=== PATIENT | male | born 1950 | race Caucasian/White ===

== ENCOUNTER → 2016-10-23 | Outpatient (CLI) | payer OTHER ==
--- NOTE | 2016-10-23 15:20 | DIAGNOSTIC IMAGING REPORT ---
CT LUNG SCREENING, LOW DOSE WITH COMPUTER-AIDED DETECTION (CAD) CLINICAL HISTORY: LOW DOSE LUNG SCREENING COMPARISON STUDY: Lung cancer screening CTs dated 04/18/2016 and 01/09/2016. CT DOSE: 83.96 mGycm TECHNIQUE: Low-dose helical CT was acquired without intravenous contrast from lung apices to bases and reconstructed at 2.5 mm every 2 mm. CAD was utilized for this study. FINDINGS: Thyroid: Imaged portions of the thyroid gland are normal in appearance. Thoracic aorta: There is atherosclerotic calcification of the thoracic aorta, which is normal in caliber and demonstrates standard 3-vessel arch anatomy. Heart: The heart is normal in size and configuration, without pericardial effusion. The coronary arteries are densely calcified. There is lipomatous hypertrophy of the interatrial septum. There is mild dilatation of the main pulmonary arteries suggesting pulmonary artery hypertension. Lungs and pleural spaces: Moderate to advanced emphysema is identified. No airspace consolidation or pleural effusion is seen. There are numerous small calcified granulomas. The trachea and central airways are clear. There is a 10 mm nodule in the right middle lobe seen on axial image #179. This is unchanged dating back to 01/09/2016. Additional subcentimeter noncalcified pulmonary nodules are identified. The largest are seen the left upper lobe on image #78 measuring 6 mm, the right middle lobe on image #195 measuring 6 mm, and the left lower lobe on image #201 measuring 5 mm. These are also unchanged. No new pulmonary lesion is suspected. Mediastinum: There is no mediastinal lymphadenopathy. [place]: Not well assessed without IV contrast. Axilla: Clear. Upper abdomen: There is a small hiatal hernia. Partially visualized upper abdominal viscera is otherwise grossly unremarkable. Skeletal structures: The skeletal structures are osteopenic. There are no lytic or blastic osseous lesions. Degenerative changes noted in the thoracic spine and shoulders. IMPRESSION: 1. Emphysema. There is no airspace consolidation or pleural effusion. 2. There are numerous pulmonary nodules measuring up to 10 mm as well as numerous calcified granulomas. These have not significantly changed dating back to 01/09/2016. Continued follow-up/screening is recommended. See below. 3. No new pulmonary lesions are identified. Nodule 1 Category: 2 Nodule 1 Status: Shrinking Nodule 1 Description: Solid Nodule 1 Lesion ID: 7 Nodule 1 Slice Number: [id number] Nodule 1 Volume (mm3): 186 Nodule 1 [place] mm: 11.0 Nodule 1 [place] mm: 7.8 Nodule 2 Category: 2 Nodule 2 Status: Stable Nodule 2 Description: Solid Nodule 2 Lesion ID: 3 Nodule 2 Slice Number: [id number] Nodule 2 Volume (mm3): 61 Nodule 2 Major [place] mm: 5.5 Nodule 2 Minor [place] mm: 4.7 Nodule 3 Category: 2 Nodule 3 Status: Stable Nodule 3 Description: Solid Nodule 3 Lesion ID: 2 Nodule 3 Slice Number: 152 Nodule 3 Volume (mm3): 48 Nodule 3 Major [place] mm: 7.2 Nodule 3 Minor [place] mm: 4.4 CAD FINDINGS: Overall Lung RADS Category: 2 Lung RADS Management Recommendation: Lung-RADS 2: Continue annual screening in 12 months. Lung RADS Follow Up Date: 2017-10-23 Lung RADS Nodule ID: [id number] Electronically signed by: Saturnino May M.D. 10/23/2016 3:18 PM Dictated Date/Time: 10/23/2016 11:55 AM
== END | disposition home or self-care (01) ==
LOC: C.CTS 11:24
PROVIDERS: ATTEND Nurse Practitioner Family
DX: Z87.891 Personal history of nicotine dependence (principal); J43.9 Emphysema, unspecified; R91.8 Other nonspecific abnormal finding of lung field

== ENCOUNTER → 2017-05-19 | Outpatient (CLI) | payer OTHER ==
--- NOTE | 2017-05-19 12:32 | DIAGNOSTIC IMAGING REPORT ---
RIGHT KNEE 2 VIEWS HISTORY: M25.561 COMPARISON: None. FINDINGS: There is no fracture or dislocation. Small suprapatellar knee effusion. Mild vascular calcifications. Small calcific density adjacent to the medial femoral condyle. This is likely due to an old MCL injury. Minor arthritic change at the patellofemoral and medial compartments of the knee. No radiopaque foreign bodies. IMPRESSION: 1. No acute fracture or dislocation within the right knee. 2. Small joint effusion. 3. Suspect an old MCL injury. Electronically signed by: Hair Loza M.D. 05/19/2017 12:31 PM Dictated Date/Time: 05/19/2017 12:29 PM
== END | disposition home or self-care (01) ==
LOC: C.RAD 11:36
PROVIDERS: ATTEND Nurse Practitioner Family
DX: M25.561 Pain in right knee (principal)

== ENCOUNTER → 2017-11-12 | Outpatient (CLI) | payer OTHER ==
--- NOTE | 2017-11-12 11:51 | DIAGNOSTIC IMAGING REPORT ---
CT LUNG SCREENING CHEST, LOW DOSE WITH COMPUTER-AIDED DETECTION (CAD) CLINICAL HISTORY: Tobacco use. Encounter for screening for lung cancer. COMPARISON STUDY: Low dose lung cancer screening CT October 23, 2016. CT DOSE: 91.27 mGy.cm TECHNIQUE: Low-dose helical CT was acquired without intravenous contrast from lung apices to bases and reconstructed at 2.5 mm every 2 mm. CAD was utilized for this study. A dose lowering technique was utilized adhering to the principles of ALARA. FINDINGS: No enlarged axillary, mediastinal or hilar lymph nodes are present. The heart is mildly enlarged. There is extensive coronary artery calcification. No pericardial effusion is present. No pneumothorax or pleural effusion is noted. Moderate upper lobe predominant emphysema is noted. There is no consolidation to suggest pneumonia. No pneumothorax or pleural effusion is noted. Numerous pulmonary nodules are unchanged since initial CT of January 09, 2016 and include a 1 cm perifissural right middle lobe nodule shown on image [id number]. A 7 mm right middle lobe nodule shown image 169 is unchanged. No new nodules are present. There are several calcified granulomas. Bony thorax is unremarkable. A left adrenal low-attenuation lesion is unchanged and represents an adenoma. IMPRESSION: 1. No change in multiple pulmonary nodules since CT of January 09, 2016. These nodules are likely benign and can be assessed on routine annual screening low dose CT in 12 months. This study is considered 2. Moderate emphysema. 3. Mild cardiomegaly and extensive coronary artery calcification. CAD FINDINGS: Overall Lung RADS Category: 2 Lung RADS Management Recommendation: Lung RADS 2: Continue annual screening in 12 months. Lung RADS Follow Up Date: November 12, 2018. Electronically signed by: Shaun Parnell M.D. 11/12/2017 11:50 AM Dictated Date/Time: 11/12/2017 11:27 AM
== END | disposition home or self-care (01) ==
LOC: C.CTS 10:00
PROVIDERS: ATTEND Nurse Practitioner Family
DX: Z72.0 Tobacco use (principal); Z12.2 Encounter for screening for malignant neoplasm of respiratory organs; R91.1 Solitary pulmonary nodule; J43.9 Emphysema, unspecified; I25.10 Atherosclerotic heart disease of native coronary artery without angina pectoris

== ENCOUNTER 2019-08-13 21:10 | Inpatient (IN) ==
[2019-08-13] MEDS ORDERED: ALBUT/IPRATROP 3MG/0.5MG NEB 3 ML VIAL NEB STA (21:24)
[2019-08-13] MEDS ORDERED: CEFEPIME 2,000 MG/20 ML VIAL IV STA (21:24)
[2019-08-13] MEDS ORDERED: SODIUM CHLORIDE 0.9% 1000ML 1,000 ML IV ONE (21:24)
[2019-08-13] MEDS ORDERED: ACETAMINOPHEN 1,000 MG/100 ML VIAL IV STA (21:35)
--- NOTE | 2019-08-13 21:35 | Emergency Department Note ---
Impression & Plan Sepsis, SOB (shortness of breath), Tachycardia, Fever, Pneumonia ED Provider Note NAME: EDER ARRIAGA AGE: 69 SEX: M : 1950 ARRIVES VIA: Ambulance INFORMANT: [Patient][nurses, ems] ED PROVIDER(S): [Saturnino Boothe MD] CHIEF COMPLAINT: Fever, confusion HISTORY OF PRESENT ILLNESS: The patient is a 69-year-old male who was brought by ambulance from his home. He lives with his son. The patient apparently was weak and tired today and seemed a little bit confused. He had a subtle cough and a low-grade fever. The patient denies any pain. He does admit to being short of breath but states he feels better since being placed on oxygen. He has no diarrhea, he has not been vomiting. He denies any sore throat or stuffy nose. The patient's weakness has been constant, and has been persistent all day. Nothing makes it better or worse. His cough is minimal really. The patient has not had any coronavirus exposures, he has been isolating at home with his son. No one else has been sick in the home. Of note, the patient is slightly confused and thus, no further history obtainable. REVIEW OF SYSTEMS: Unobtainable/unreliable given the confusion and mental status change. PMHx/PSHx: See Below SOCIAL HISTORY: See Below. PHYSICAL EXAM: GENERAL: Patient is in mild distress. HEENT: No acute trauma, normocephalic atraumatic, mucous membranes quite dry, no nasal congestion, no scleral icterus. NECK: No stridor, no adenopathy, no meningismus, trachea is midline. LUNGS: Diminished breath sounds with crackles at the left base. No wheezing, breath sounds are equal, no real respiratory distress. HEART: Without murmurs gallops or rubs, mildly tachycardic, regular rhythm. ABDOMEN: Soft, nontender, bowel sounds positive, no hernias, no peritonitis. EXTREMITIES: No cyanosis or edema, full range of motion of all the joints without pain or difficulty, no signs for acute trauma. NEUROLOGIC: Awake, moves all extremities, can answer very simple questions, does seem slightly confused. SKIN: No rash, no jaundice, no diaphoresis. DIFFERENTIAL DIAGNOSIS: Sepsis, UTI, pneumonia, metabolic, electrolyte abnormalities, cardiac sources, intracerebral event, toxicologic, neurologic, as well as other pathologies. EMERGENCY DEPARTMENT COURSE/PROCEDURES: ECG: Indication was tachycardia. EKG shows a sinus tachycardia with a rate of 129. The QTc is 421. There is some baseline artifact. No ST elevation, no PVCs. Continuous Cardiac Monitoring: An order was placed for continuous cardiac monitoring. The monitor shows a rate of 120 with a sinus tachycardia. Critical Care Note: I have personally spent greater than 49 minutes of critical care time in the direct management of this patient. This includes bedside care, interpretation of diagnostic studies, and testing, discussion with consultants, patient, and family members, and other required patient management activities. This 49 minutes is in excess of all separately billable procedures. MEDICAL DECISION MAKING: There is a mild leukocytosis, this would be consistent with infection. No anemia. There is a normal platelet count. No coagulopathy. No significant electrolyte abnormality or kidney failure. No concerning liver enzyme elevati on. Urinalysis does not show evidence for infection. Influenza testing was negative. Chest film shows congestion at the bases, especially on the right. No pneumothorax, no obvious pneumonia by chest film. Lactic acid level is elevated consistent with sepsis and/or dehydration. On exam, there was no obvious cellulitis. Brain CT shows no acute bleed or mass-effect. Chest CT shows a right lower lung infiltrate. The patient was febrile, he was tachycardic and slightly confused. He did appear to have some diminished breath sounds with some crackles at his lung bases. Most of the lung crackles were heard on the left. The patient was aggressively managed as he did meet criteria for sepsis. He received 1.5 L of IV saline. He was given IV cefepime as empiric antibiotic coverage. He was given IV Tylenol and a DuoNeb. He was maintained on nasal cannula oxygen. Patient does appear to be slowly improving. The patient is in need of hospitalization. He is septic from pneumonia. He has been aggressively managed. I did speak to the patient, I talked to the wrapper caser. The on-call hospitalist was consulted. Past Med/Surg History Medical History Diabetes mellitus Social History Feels Safe at Home: Yes Smoking Status: Current every day smoker Cigarettes Per Day: 40 ; Second Hand Exposure: No ; Home Meds Home Medications Medication Instructions Recorded Confirmed lisinopril 5 mg PO DAILY 08/13/19 08/13/19 omeprazole 20 mg PO DAILY 08/13/19 08/13/19 Results & Data (ED) Vital Signs Vital Signs - 24 hr 08/13/19 21:22 08/13/19 21:28 08/13/19 21:51 Temperature 38.5 C H Temperature Source Oral Pulse Rate 123 H Pulse Rate [Bilateral Apical] 128 H Respiratory Rate 28 H 26 H Respiratory Effort / Characteristics Non-Labored Respiratory Depth Normal Blood Pressure 143/75 H Blood Pressure [Right Arm] Blood Pressure Mean 97 Blood Pressure Mean [Right Arm] Blood Pressure Position [Right Arm] Pulse Oximetry 91 93 94 Oxygen Delivery Method Room Air Nasal Cannula Nasal Cannula Oxygen Flow Rate 3 3 Sepsis Recent Fever Within 48 Hours Yes Sepsis New/Unexplained Change in Mental Status Yes Sepsis Action Taken by Nursing No Action Required 08/13/19 21:54 08/13/19 22:27 08/13/19 23:00 Temperature 37.6 C H Temperature Source Oral Pulse Rate Pulse Rate [Bilateral Apical] 120 H 120 H 120 H Respiratory Rate 20 22 22 Respiratory Effort / Characteristics Non-Labored Spontaneous Respiratory Depth Normal Blood Pressure Blood Pressure [Right Arm] 114/78 139/90 Blood Pressure Mean Blood Pressure Mean [Right Arm] 90 106 Blood Pressure Position [Right Arm] Semi-fowlers Pulse Oximetry 96 93 92 Oxygen Delivery Method Nasal Cannula Nasal Cannula Nasal Cannula Oxygen Flow Rate 3 3 3 Sepsis Recent Fever Within 48 Hours Sepsis New/Unexplained Change in Mental Status Sepsis Action Taken by [facility] Medications Current Medication List: was personally reviewed by me Laboratory Data Attestation: I reviewed the patient's lab results. Result diagrams: 08/13/19 21:30 08/13/19 21:30 Lab Results 08/13/19 08/13/19 08/13/19 Range/Units 21:30 21:30 21:30 WBC 11.49 H (4.8-10.8) K/uL RBC 4.79 (4.7-6.1) M/uL Hgb 15.9 (14.0-18.0) g/dL Hct 46.8 (42-52) % MCV 97.7 (80-100) fL MCH 33.2 (25-34) pg MCHC 34.0 (32-36) g/dL RDW Std Deviation 52.4 H (36.4-46.3) fL RDW Coeff of Bozena 14.6 H (11.5-14.5) % Plt Count 200 (130-400) K/uL MPV 10.2 (7.4-10.4) fL Immature Gran % (Auto) 0.4 % Neut % (Auto) 81.6 % Lymph % (Auto) 10.4 % [place] % (Auto) 7.4 % Eos % (Auto) 0.0 % Baso % (Auto) 0.2 % Immature Gran # (Auto) 0.05 H (0.00-0.02) K/uL Neut # (Auto) 9.38 H (1.4-6.5) K/uL Lymph # (Auto) 1.19 L (1.2-3.4) K/uL [place] # (Auto) 0.85 H (0.11-0.59) K/uL Eos # (Auto) 0.00 (0-0.5) K/uL Baso # (Auto) 0.02 (0-0.2) K/uL PT 11.7 (9.0-12.0) Seconds INR 1.1 (0.9-1.1) APTT 27.2 (21.0-31.0) Seconds PTT Ratio 1.0 Sodium 133 L (136-145) mmol/L Potassium 4.0 (3.5-5.1) mmol/L Chloride 100 (98-107) mmol/L Carbon Dioxide 24 (21-32) mmol/L Anion Gap 9.0 (3-11) BUN 29 H (7-18) mg/dl Creatinine 1.34 (0.6-1.4) mg/dl Est Cr Clr Drug Dosing 59.9 ml/min Est GFR ( Amer) 61.8 Est GFR (Non-Af Amer) 53.3 BUN/Creatinine Ratio 21.9 H (10-20) Glucose 267 H (70-99) mg/dl Lactate (0.4-2.0) mmol/L Calcium 9.2 (8.5-10.1) mg/dl Magnesium 1.9 (1.8-2.4) mg/dl Total Bilirubin 1.0 (0.2-1) mg/dl AST 20 (15-37) U/L ALT 19 (12-78) U/L Alkaline Phosphatase 56 (45-117) U/L Troponin I 0.019 (0-0.045) ng/ml Total Protein 8.6 H (6.4-8.2) gm/dl Albumin 3.5 (3.4-5.0) gm/dl Globulin 5.1 H (2.5-4.0) gm/dl Albumin/Globulin Ratio 0.7 L (0.9-2) Procalcitonin Urine Color Urine Appearance (Clear) Urine pH (4.5-7.5) Ur Specific [place] (1.000-1.030) Urine Protein (Negative) Urine Glucose (UA) (Negative) Urine Ketones (Negative) Urine Blood (Negative) Urine Nitrite (Negative) Urine Bilirubin (Negative) Urine Urobilinogen (Negative) Ur Leukocyte Esterase (Negative) Urine WBC (Auto) (0-5) /hpf Urine RBC (Auto) (0-4) /hpf U Hyaline Cast (Auto) (0-5) /lpf U Epithel Cells (Auto) (0-5) /lpf Urine Bacteria (Auto) (Negative) Influenza Type A (PCR) (Neg) Influenza Type B (PCR) (Neg) 08/13/19 08/13/19 08/13/19 Range/Units 21:30 21:38 22:14 WBC (4.8-10.8) K/uL RBC (4.7-6.1) M/uL Hgb (14.0-18.0) g/dL Hct (42-52) % MCV (80-100) fL MCH (25-34) pg MCHC (32-36) g/dL RDW Std Deviation (36.4-46.3) fL RDW Coeff of Bozena (11.5-14.5) % Plt Count (130-400) K/uL MPV (7.4-10.4) fL Immature Gran % (Auto) % Neut % (Auto) % Lymph % (Auto) % [place] % (Auto) % Eos % (Auto) % Baso % (Auto) % Immature Gran # (Auto) (0.00-0.02) K/uL Neut # (Auto) (1.4-6.5) K/uL Lymph # (Auto) (1.2-3.4) K/uL [place] # (Auto) (0.11-0.59) K/uL Eos # (Auto) (0-0.5) K/uL Baso # (Auto) (0-0.2) K/uL PT (9.0-12.0) Seconds INR (0.9-1.1) APTT (21.0-31.0) Seconds PTT Ratio Sodium (136-145) mmol/L Potassium (3.5-5.1) mmol/L Chloride (98-107) mmol/L Carbon Dioxide (21-32) mmol/L Anion Gap (3-11) BUN (7-18) mg/dl Creatinine (0.6-1.4) mg/dl Est Cr Clr Drug Dosing ml/min Est GFR ( Amer) Est GFR (Non-Af Amer) BUN/Creatinine Ratio (10-20) Glucose (70-99) mg/dl Lactate 2.9 H* (0.4-2.0) mmol/L Calcium (8.5-10.1) mg/dl Magnesium (1.8-2.4) mg/dl Total Bilirubin (0.2-1) mg/dl AST (15-37) U/L ALT (12-78) U/L Alkaline Phosphatase (45-117) U/L Troponin I (0-0.045) ng/ml Total Protein (6.4-8.2) gm/dl Albumin (3.4-5.0) gm/dl Globulin (2.5-4.0) gm/dl Albumin/Globulin Ratio (0.9-2) Procalcitonin Cancelled Urine Color Urine Appearance (Clear) Urine pH (4.5-7.5) Ur Specific [place] (1.000-1.030) Urine Protein (Negative) Urine Glucose (UA) (Negative) Urine Ketones (Negative) Urine Blood (Negative) Urine Nitrite (Negative) Urine Bilirubin (Negative) Urine Urobilinogen (Negative) Ur Leukocyte Esterase (Negative) Urine WBC (Auto) (0-5) /hpf Urine RBC (Auto) (0-4) /hpf U Hyaline Cast (Auto) (0-5) /lpf U Epithel Cells (Auto) (0-5) /lpf Urine Bacteria (Auto) (Negative) Influenza Type A (PCR) Neg for Influ A (Neg) Influenza Type B (PCR) Neg for Influ B (Neg) 08/13/19 Range/Units Unknown WBC (4.8-10.8) K/uL RBC (4.7-6.1) M/uL Hgb (14.0-18.0) g/dL Hct (42-52) % MCV (80-100) fL MCH (25-34) pg MCHC (32-36) g/dL RDW Std Deviation (36.4-46.3) fL RDW Coeff of Bozena (11.5-14.5) % Plt Count (130-400) K/uL MPV (7.4-10.4) fL Immature Gran % (Auto) % Neut % (Auto) % Lymph % (Auto) % [place] % (Auto) % Eos % (Auto) % Baso % (Auto) % Immature Gran # (Auto) (0.00-0.02) K/uL Neut # (Auto) (1.4-6.5) K/uL Lymph # (Auto) (1.2-3.4) K/uL [place] # (Auto) (0.11-0.59) K/uL Eos # (Auto) (0-0.5) K/uL Baso # (Auto) (0-0.2) K/uL PT (9.0-12.0) Seconds INR (0.9-1.1) APTT (21.0-31.0) Seconds PTT Ratio Sodium (136-145) mmol/L Potassium (3.5-5.1) mmol/L Chloride (98-107) mmol/L Carbon Dioxide (21-32) mmol/L Anion Gap (3-11) BUN (7-18) mg/dl Creatinine (0.6-1.4) mg/dl Est Cr Clr Drug Dosing ml/min Est GFR ( Amer) Est GFR (Non-Af Amer) BUN/Creatinine Ratio (10-20) Glucose (70-99) mg/dl Lactate (0.4-2.0) mmol/L Calcium (8.5-10.1) mg/dl Magnesium (1.8-2.4) mg/dl Total Bilirubin (0.2-1) mg/dl AST (15-37) U/L ALT (12-78) U/L Alkaline Phosphatase (45-117) U/L Troponin I (0-0.045) ng/ml Total Protein (6.4-8.2) gm/dl Albumin (3.4-5.0) gm/dl Globulin (2.5-4.0) gm/dl Albumin/Globulin Ratio (0.9-2) Procalcitonin Urine Color Dark Yellow Urine Appearance Clear (Clear) Urine pH 5.0 (4.5-7.5) Ur Specific [place] 1.026 (1.000-1.030) Urine Protein 2+ H (Negative) Urine Glucose (UA) 2+ H (Negative) Urine Ketones Trace H (Negative) Urine Blood 3+ H (Negative) Urine Nitrite Negative (Negative) Urine Bilirubin Negative (Negative) Urine Urobilinogen Negative (Negative) Ur Leukocyte Esterase Negative (Negative) Urine WBC (Auto) 1-5 (0-5) /hpf Urine RBC (Auto) 0-4 (0-4) /hpf U Hyaline Cast (Auto) 5-10 H (0-5) /lpf U Epithel Cells (Auto) 5-10 H (0-5) /lpf Urine Bacteria (Auto) Negative (Negative) Influenza Type A (PCR) (Neg) Influenza Type B (PCR) (Neg) Administered Medications Discontinued Medications Albuterol (Duoneb) 3 ml NEB NOW STA Stop: 08/13/19 21:25 Last Admin: 08/13/19 21:54 Dose: 3 ml Documented by: [id number] Sodium Chloride (Nss 1000ml) 1,000 mls @ 999 mls/hr IV .Q1H1M ONE Stop: 08/13/19 22:24 Last Infusion: 08/13/19 22:53 Dose: 0 mls/hr Documented by: [id number] Admin: 08/13/19 21:44 Dose: 999 mls/hr Documented by: [id number] Cefepime HCl (Maxipime) 2,000 mg in 20 mls @ 5 mls/min IV NOW STA; Protocol Stop: 08/13/19 21:27 Last Admin: 08/13/19 22:10 Dose: 5 mls/min Documented by: [id number] Acetaminophen (Ofirmev) 1,000 mg in 100 mls @ 400 mls/hr IV NOW STA Stop: 08/13/19 21:49 Last Infusion: 08/13/19 22:09 Dose: 0 mls/hr Documented by: [id number] Admin: 08/13/19 21:44 Dose: 400 mls/hr Documented by: [id number] Sodium Chloride (Nss 1000ml) 500 mls @ 999 mls/hr IV .Q31M ONE Stop: 08/13/19 22:34 Last Infusion: 08/13/19 22:53 Dose: 0 mls/hr Documented by: [id number] Admin: 08/13/19 22:23 Dose: 999 mls/hr Documented by: [id number] Imaging Data Radiologist's Impression: SINGLE VIEW CHEST CLINICAL HISTORY: Sepsis. FINDINGS: An AP, portable, upright chest radiograph is correlated with chest CT dated 11/26/2018. The examination is degraded by portable technique and apical lordotic positioning. The heart is enlarged. There is prominence of the pulmonary vasculature. Emphysema and chronic interstitial thickening are similar to previous. There are scattered calcified granulomas. Scarring/atelectasis is noted at the lung bases. No airspace consolidation or large pleural effusion is identified. No pneumothorax is seen. The skeletal structures are osteopenic. The bony thorax is grossly intact. IMPRESSION: 1. Cardiomegaly and emphysema. 2. There is prominence of the central pulmonary vessels. Correlate clinical difference of mild congestive failure. 3. No airspace consolidation or large pleural effusion is identified. CT SCAN OF THE BRAIN WITHOUT IV CONTRAST CLINICAL HISTORY: Change in mental status. COMPARISON STUDY: No priors. TECHNIQUE: Unenhanced axial CT scan of the brain is performed from the vertex to the skull base. A dose lowering technique was utilized adhering to the principles of ALARA. FINDINGS: Brain parenchyma: There are age-related involutional changes noting mild subcortical and periventricular microangiopathic change. There is no hemorrhage, mass effect, or evidence of acute territorial ischemia by CT criteria. Villalpando- white matter differentiation is preserved. No extra-axial fluid collection is seen. Ventricles, sulci, cisterns: Prominent secondary to involutional change. Intracranial vasculature: There is atherosclerotic calcification of the cavernous carotid and vertebral arteries. Calvarium: Unremarkable. Sinuses and mastoids: There is trace mucosal thickening in the left maxillary antrum. The remaining visualized paranasal sinuses are clear. The mastoid air cells are well pneumatized. Orbits: The bony orbits are grossly intact. IMPRESSION: There is no hemorrhage, mass effect, or evidence of acute territoria l ischemia by CT criteria. CT SCAN OF THE CHEST WITHOUT IV CONTRAST CLINICAL HISTORY: Fever. Cough and dyspnea. COMPARISON STUDY: Chest x-ray 08/13/2019. Chest CT scan dated 11/26/2018 and 01/09/2016. TECHNIQUE: CT scan of the thorax was performed from the thoracic inlet to the upper abdomen. Images are reviewed in the axial, sagittal, and coronal planes. IV contrast was not administered for this examination as per the referring clinician. A dose lowering technique was utilized adhering to the principles of ALARA. CT DOSE: 2251.30 mGy.cm FINDINGS: Thyroid: Imaged portions of the thyroid gland are normal in size and attenuation. Thoracic aorta: There is atherosclerotic calcification of the thoracic aorta, which is normal in caliber and demonstrates standard 3-vessel arch anatomy. Heart: The heart is mildly enlarged and without pericardial effusion. The coronary arteries are densely calcified. Lungs and pleural spaces: Emphysematous change is similar to previous. The trachea and central airways are clear. There is patchy airspace consolidation in the right lower lobe typical in appearance for pneumonia. No pleural effusion is identified. Scattered calcified granulomas are observed. An 11 mm focus of pleural-based nodularity in the right middle lobe along the minor fissure is seen on image #146. A 5 mm right middle lobe nodule is seen on image #163. Mediastinum: There is no mediastinal lymphadenopathy. [place]: Not well assessed without IV contrast. Axillae: There is no axillary lymphadenopathy. Upper abdomen: There is a small hiatal hernia. A 2.3 cm left adrenal adenoma is unchanged. The pancreas is atrophic. A 1.6 cm cyst is noted in the upper pole of the left kidney. Skeletal structures: The skeletal structures are osteopenic. Degenerative change is noted throughout the thoracic spine. No lytic or blastic bony lesions are seen. IMPRESSION: 1. Cardiomegaly and emphysema. 2. Right lower lobe consolidation is typical in appearance for pneumonia. Clinical correlation will be required and radiographic follow-up to resolution is recommended. Follow-up radiographs should include both PA and lateral views. 3. Pulmonary pleural-based nodular densities have been present dating back to 2016. Continued attention at annual lung cancer screening is recommended. 4. Additional findings as above. Blood Pressure Blood Pressure Findings: Elevated blood pressure Blood Pressure Disposition: further management by hospitalist Discharge Plan Visit Data Chief Complaint: Fever Stated Complaint: AMS, FALLS, FEVER, SOB ED Provider: Saturnino Boothe Discharge Problem: Sepsis, SOB (shortness of breath), Tachycardia, Fever, Pneumonia Patient Disposition: Being Evaluated by Hospitalist Condition: Fair Forms Stand Alone Forms: Mixers Prescriptions Prescriptions: No Action omeprazole 20 mg capsule,delayed release(DR/EC) 20 mg PO DAILY RF: 0 lisinopril 5 mg tablet 5 mg PO DAILY RF: 0 atorvastatin 10 mg tablet 10 mg PO DAILY RF: 0 metformin 500 mg tablet 500 mg PO BID RF: 0 Referrals Referrals: Shiloh Santo [Primary Care Provider] - Discharge Problem: Sepsis Qualifiers: Sepsis type: sepsis due to unspecified organism Sepsis acute organ dysfunction status: without acute organ dysfunction Qualified Code(s): A41.9 - Sepsis, unspecified organism Fever Qualifiers: Fever type: unspecified Qualified Code(s): R50.9 - Fever, unspecified Pneumonia Qualifiers: Pneumonia type: due to unspecified organism Laterality: right Lung location: lower lobe of lung Qualified Code(s): J18.9 - Pneumonia, unspecified organism
[2019-08-13 21:44] LABS: Basophils # (auto) 0.02 K/uL (0-0.2); Basophils % (auto) 0.2 %; Hematocrit (blood only) 46.8 % (42-52); Hemoglobin 15.9 g/dL (14.0-18.0); Immature Granulocytes # (auto) 0.05 K/uL (0.00-0.02); Immature Granulocytes % (auto) 0.4 %; Lymphocytes # (auto) 1.19 K/uL (1.2-3.4); Lymphocytes % (auto) 10.4 %; Mean Corpuscular Hemoglobin 33.2 pg (25-34); Mean Corpuscular Volume 97.7 fL (80-100); Mean Platelet Volume 10.2 fL (7.4-10.4); Monocytes # (auto) 0.85 K/uL (0.11-0.59); Monocytes % (auto) 7.4 %; Neutrophils # (auto) 9.38 K/uL (1.4-6.5); Neutrophils % (auto) 81.6 %; Platelet Count 200 K/uL (130-400); RDW Coefficient of Variation 14.6 % (11.5-14.5); RDW Standard Deviation 52.4 fL (36.4-46.3); Red Blood Count 4.79 M/uL (4.7-6.1); White Blood Count 11.49 K/uL (4.8-10.8)
[2019-08-13 21:55] LABS: INR 1.1 (0.9-1.1); Partial Thromboplastin Time 27.2 Seconds (21.0-31.0); Prothrombin Time 11.7 Seconds (9.0-12.0)
[2019-08-13 22:01] LABS: Albumin Level 3.5 gm/dl (3.4-5.0); Calcium 9.2 mg/dl (8.5-10.1); Creatinine Clr Calc Pharmacy 59.9 ml/min; Est GFR (African American) 61.8; Est GFR (Non-African American) 53.3; Magnesium 1.9 mg/dl (1.8-2.4)
[2019-08-13] MEDS ORDERED: SODIUM CHLORIDE 0.9% 1000ML 500 ML IV ONE (22:04)
[2019-08-13 22:06] LABS: Albumin Globulin Ratio 0.7 (0.9-2); Globulin 5.1 gm/dl (2.5-4.0); Total Protein 8.6 gm/dl (6.4-8.2); Troponin I 0.019 ng/ml (0-0.045)
[2019-08-13 22:12] LABS: BUN Creatinine Ratio 21.9 (10-20)
[2019-08-13 22:12] LABS: Appearance Urine Clear (Clear); Bacteria Urine Automated Negative (Negative); Bilirubin Urine Negative (Negative); Blood Urine 3+ (Negative); Color Urine Dark Yellow; Glucose Urine UA 2+ (Negative); Ketones Urine Trace (Negative); Leukocyte Esterase Urine Negative (Negative); Nitrite Urine Negative (Negative); Protein Urine 2+ (Negative); RBC Urine Automated 0-4 /hpf (0-4); Specific Gravity Urine 1.026 (1.000-1.030); Urobilinogen Urine Negative (Negative)
--- NOTE | 2019-08-13 22:12 | XRay Report ---
SINGLE VIEW CHEST CLINICAL HISTORY: Sepsis. FINDINGS: An AP, portable, upright chest radiograph is correlated with chest CT dated 11/26/2018. The e xamination is degraded by portable technique and apical lordotic positioning. The heart is enlarged. There is prominence of the pulmonary vasculature. Emphysema and chronic interstitial thickening are s imilar to previous. There are scattered calcified granulomas. Scarring/atelectasis is noted at the stacie ng bases. No airspace consolidation or large pleural effusion is identified. No pneumothorax is seen. The skeletal structures are osteopenic. The bony thorax is grossly intact. IMPRESSION: 1. Cardiomegaly and emphysema. 2. There is prominence of the central pulmonary vessels. Correlate clinical difference of mild conges tive failure. 3. No airspace consolidation or large pleural effusion is identified. ACT 112: Negative or not required by law. Electronically signed by: Saturnino May M.D. 08/13/2019 10:11 PM
[2019-08-13 22:26] LABS: Influenza A virus by PCR Neg for Influ A (Neg); Influenza B virus by PCR Neg for Influ B (Neg)
--- NOTE | 2019-08-13 22:57 | CT Scan Report ---
CT SCAN OF THE BRAIN WITHOUT IV CONTRAST CLINICAL HISTORY: Change in mental status. COMPARISON STUDY: No priors. TECHNIQUE: Unenhanced axial CT scan of the brain is performed from the vertex to the skull base. A do se lowering technique was utilized adhering to the principles of ALARA. FINDINGS: Brain parenchyma: There are age-related involutional changes noting mild subcortical and periventric ular microangiopathic change. There is no hemorrhage, mass effect, or evidence of acute territorial i schemia by CT criteria. Villalpando-white matter differentiation is preserved. No extra-axial fluid collecti on is seen. Ventricles, sulci, cisterns: Prominent secondary to involutional change. Intracranial vasculature: There is atherosclerotic calcification of the cavernous carotid and vertebr al arteries. Calvarium: Unremarkable. Sinuses and mastoids: There is trace mucosal thickening in the left maxillary antrum. The remaining v isualized paranasal sinuses are clear. The mastoid air cells are well pneumatized. Orbits: The bony orbits are grossly intact. IMPRESSION: There is no hemorrhage, mass effect, or evidence of acute territorial ischemia by CT katie garduno. ACT 112: Negative or not required by law. Electronically signed by: Saturnino May M.D. 08/13/2019 10:56 PM
--- NOTE | 2019-08-13 23:06 | CT Scan Report ---
CT SCAN OF THE CHEST WITHOUT IV CONTRAST CLINICAL HISTORY: Fever. Cough and dyspnea. COMPARISON STUDY: Chest x-ray 08/13/2019. Chest CT scan dated 11/26/2018 and 01/09/2016. TECHNIQUE: CT scan of the thorax was performed from the thoracic inlet to the upper abdomen. Images are reviewed in the axial, sagittal, and coronal planes. IV contrast was not administered for this ex amination as per the referring clinician. A dose lowering technique was utilized [facility] DOSE: 2251.30 mGy.cm FINDINGS: Thyroid: Imaged portions of the thyroid gland are normal in size and attenuation. Thoracic aorta: There is atherosclerotic calcification of the thoracic aorta, which is normal in misa sudarshan and demonstrates standard 3-vessel arch anatomy. Heart: The heart is mildly enlarged and without pericardial effusion. The coronary arteries are dense ly calcified. Lungs and pleural spaces: Emphysematous change is similar to previous. The trachea and central airway s are clear. There is patchy airspace consolidation in the right lower lobe typical in appearance for pneumonia. No pleural effusion is identified. Scattered calcified granulomas are observed. An 11 mm focus of pleural-based nodularity in the right middle lobe along the minor fissure is seen on image # 146. A 5 mm right middle lobe nodule is seen on image #163. Mediastinum: There is no mediastinal lymphadenopathy. [place]: Not well assessed without IV contrast. Axillae: There is no axillary lymphadenopathy. Upper abdomen: There is a small hiatal hernia. A 2.3 cm left adrenal adenoma is unchanged. The pancre as is atrophic. A 1.6 cm cyst is noted in the upper pole of the left kidney. Skeletal structures: The skeletal structures are osteopenic. Degenerative change is noted throughout the thoracic spine. No lytic or blastic bony lesions are seen. IMPRESSION: 1. Cardiomegaly and emphysema. 2. Right lower lobe consolidation is typical in appearance for pneumonia. Clinical correlation will b e required and radiographic follow-up to resolution is recommended. Follow-up radiographs should incl ude both PA and lateral views. 3. Pulmonary pleural-based nodular densities have been present dating back to 2015. Continued attenti on at annual lung cancer screening is recommended. 4. Additional findings as above. ACT 112: Negative or not required by law. Electronically signed by: Saturnino May M.D. 08/13/2019 11:05 PM
--- NOTE | 2019-08-13 23:51 | History & Physical Report ---
Date of Service August 13, 2019 Assessment & Plan (1) Pneumonia: 69yo C male smoker presenting with one day of fever, weakness and fatigue. Fount to have RLL PNA on CT chest. Patient febrile on arrival, tachycardic and tachypneic, requiring supplemental O2. WBC=11.49 with neutrophil predominance, BUN = 29, Lactate=2.9, Procalcitonin = 0.45. Patient is coming from home, no recent hospitalizations, no coronavirus concerns at this time. (CURB-65 Score = 3) -Admit to medical floor -Follow cultures sent by ER -Azithromycin and Ceftriaxone for presumed CAP -NSS at 80mL/hr x 1 liter -Supplemental O2 as needed Present on Admission?: Yes (2) Diabetes mellitus: Patient with Type II DM on Metformin. BS elevated today at 267. No prior A1C in records -Lantus 5u BID with ISS, adjust as needed for goal blood sugar 100 - 140 -Continue Lisinopril 5mg po daily with holding parameters -Continue Atorvastatin 10mg po daily -CC diet -Check A1C with AM labs Present on Admission?: Yes (3) GERD (gastroesophageal reflux disease): Chronic. Stable -Continue Omeprazole 20mg po daily Present on Admission?: Yes (4) Tobacco abuse: Tobacco cessation counseling F/E/N - NSS at 80mL/hr x 1 liter, monitor electrolytes and replete as needed, CC diet as tolerated Ppx - Lovenox Code - DNR/DNI per discussion with patient Dispo - Admit to medical floor for sepsis secondary to RLL PNA Present on Admission?: Yes Admission and Anticipated Discharge Date Admission Date: 08/13/19 Anticipated date of discharge: 08/15/19 History of Present Illness Chief Complaint: weakness, fatigue Primary Care Provider: Shiloh Santo Silas Santiago is a pleasant 69yo C male with history of DM, tobacco use presenting with 1-2 days of weakness, fatigue and feeling "out of wack". Also mild fever and some confusion at home. Patient reports a chronic cough productive for clear phlegm. He denies worsening cough, SOB, increased sputum production or purulent/bloody sputum. He denies GUO/abdominal pain/nausea/vomiting/diarrhea/constipation. No additional complaints at this time. On arrival to the ER he was found to be febrile at 38.5, tachycardic at 128bpm, tachypneic at 28 breaths/min saturating 91% on room air. Supplemental O2 was placed with improvement to 96%. Patient lives at home with his son. He denies any sick contacts or contact with known Covid+ persons. No recent travel. No Covid-19 testing performed. No concern for coronavirus at this time. ER Course: Tylenol, Cefepime, Albuterol, NSS Allergies Allergy/AdvReac Type Severity Reaction Status Date / Time aspirin Allergy Anaphylaxis Unverified 08/13/19 23:32 Home Medications Home Medications Medication Instructions Recorded Confirmed Type atorvastatin 10 mg PO DAILY 08/13/19 08/13/19 History lisinopril 5 mg PO DAILY 08/13/19 08/13/19 History metformin 500 mg PO BID 08/13/19 08/13/19 History omeprazole 20 mg PO DAILY 08/13/19 08/13/19 History Past Med/Surg History Medical History (Updated 08/13/19 @ 23:49 by Edel Voss DO) Diabetes mellitus GERD (gastroesophageal reflux disease) Lung nodule Surgical History (Updated 08/13/19 @ 23:37 by Edel Voss DO) No significant past surgical history Family History (Updated 08/13/19 @ 23:38 by Edel Voss DO) Other No significant family history Social History (Updated 08/13/19 @ 23:38 by Edel Voss DO) Feels Safe at Home: Yes Smoking Status: Current every day smoker Cigarettes Per Day: 40 ; Second Hand Exposure: No ; Hx Alcohol Use: No Hx Substance Use: No Review of Systems Review of Systems: All systems reviewed & are unremarkable except as noted in HPI & below Physical Exam Physical Exam: General: patient resting comfortably, NAD, non-toxic in appearance, AA&O x 4, slight delay in answering questions Skin: warm, dry, intact, no rashes or lesions HEENT: NC/AT, PERRL, EOMI, anicteric sclera, conjunctiva without injection, external ear normal to inspection and nontender, nares patent, moist mucus membranes, dentition intact, no oropharyngeal lesions, neck supple, trachea midline, no LAD, no thyromegaly, no JVD Heart: +S1/S2, regular, tachycardic, no m/r/g Lungs: equal air entry bilaterally, +crackles at left base, no wheezing Abd: +BS, soft, NT/ND, no masses/organomegaly/ascites Ext: warm, 2+ pulses in UE/LE bilaterally, no clubbing/cyanosis or edema Neuro: nonfocal, patient AA&O x 4, speech intact, no facial droop, moving all extremities on command with equal strength 5/5 Results & Data Results & Data ([facility]) Vital Signs (Past 12 Hours) Vital Signs Temp Pulse Pulse Resp BP BP Pulse Ox 08/13/19 23:00 37.6 C H 120 H 22 139/90 92 08/13/19 22:27 120 H 22 114/78 93 08/13/19 21:54 120 H 20 96 08/13/19 21:51 128 H 26 H 94 08/13/19 21:28 93 08/13/19 21:22 38.5 C H 123 H 28 H 143/75 H 91 Laboratory Results Lab Results 08/13/19 08/13/19 08/13/19 Range/Units 21:30 21:30 21:30 WBC 11.49 H (4.8-10.8) K/uL RBC 4.79 (4.7-6.1) M/uL Hgb 15.9 (14.0-18.0) g/dL Hct 46.8 (42-52) % MCV 97.7 (80-100) fL MCH 33.2 (25-34) pg MCHC 34.0 (32-36) g/dL RDW Std Deviation 52.4 H (36.4-46.3) fL RDW Coeff of [place]zen[place] 14.6 H (11.5-14.5) % Plt Count 200 (130-400) K/uL MPV 10.2 (7.4-10.4) fL Immature Gran % (Auto) 0.4 % Neut % (Auto) 81.6 % Lymph % (Auto) 10.4 % [place] % (Auto) 7.4 % Eos % (Auto) 0.0 % Baso % (Auto) 0.2 % Immature Gran # (Auto) 0.05 H (0.00-0.02) K/uL Neut # (Auto) 9.38 H (1.4-6.5) K/uL Lymph # (Auto) 1.19 L (1.2-3.4) K/uL [place] # (Auto) 0.85 H (0.11-0.59) K/uL Eos # (Auto) 0.00 (0-0.5) K/uL Baso # (Auto) 0.02 (0-0.2) K/uL PT 11.7 (9.0-12.0) Seconds INR 1.1 (0.9-1.1) APTT 27.2 (21.0-31.0) Seconds PTT Ratio 1.0 Sodium 133 L (136-145) mmol/L Potassium 4.0 (3.5-5.1) mmol/L Chloride 100 (98-107) mmol/L Carbon Dioxide 24 (21-32) mmol/L Anion Gap 9.0 (3-11) BUN 29 H (7-18) mg/dl Creatinine 1.34 (0.6-1.4) mg/dl Est Cr Clr Drug Dosing 59.9 ml/min Est GFR ( Amer) 61.8 Est GFR (Non-Af Amer) 53.3 BUN/Creatinine Ratio 21.9 H (10-20) Glucose 267 H (70-99) mg/dl Lactate (0.4-2.0) mmol/L Calcium 9.2 (8.5-10.1) mg/dl Magnesium 1.9 (1.8-2.4) mg/dl Total Bilirubin 1.0 (0.2-1) mg/dl AST 20 (15-37) U/L ALT 19 (12-78) U/L Alkaline Phosphatase 56 (45-117) U/L Troponin I 0.019 (0-0.045) ng/ml Total Protein 8.6 H (6.4-8.2) gm/dl Albumin 3.5 (3.4-5.0) gm/dl Globulin 5.1 H (2.5-4.0) gm/dl Albumin/Globulin Ratio 0.7 L (0.9-2) Procalcitonin Urine Color Urine Appearance (Clear) Urine pH (4.5-7.5) Ur Specific [place] (1.000-1.030) Urine Protein (Negative) Urine Glucose (UA) (Negative) Urine Ketones (Negative) Urine Blood (Negative) Urine Nitrite (Negative) Urine Bilirubin (Negative) Urine Urobilinogen (Negative) Ur Leukocyte Esterase (Negative) Urine WBC (Auto) (0-5) /hpf Urine RBC (Auto) (0-4) /hpf U Hyaline Cast (Auto) (0-5) /lpf U Epithel Cells (Auto) (0-5) /lpf Urine Bacteria (Auto) (Negative) Influenza Type A (PCR) (Neg) Influenza Type B (PCR) (Neg) 08/13/19 08/13/19 08/13/19 Range/Units 21:30 21:38 22:14 WBC (4.8-10.8) K/uL RBC (4.7-6.1) M/uL Hgb (14.0-18.0) g/dL Hct (42-52) % MCV (80-100) fL MCH (25-34) pg MCHC (32-36) g/dL RDW Std Deviation (36.4-46.3) fL RDW Coeff of Bozena (11.5-14.5) % Plt Count (130-400) K/uL MPV (7.4-10.4) fL Immature Gran % (Auto) % Neut % (Auto) % Lymph % (Auto) % [place] % (Auto) % Eos % (Auto) % Baso % (Auto) % Immature Gran # (Auto) (0.00-0.02) K/uL Neut # (Auto) (1.4-6.5) K/uL Lymph # (Auto) (1.2-3.4) K/uL [place] # (Auto) (0.11-0.59) K/uL Eos # (Auto) (0-0.5) K/uL Baso # (Auto) (0-0.2) K/uL PT (9.0-12.0) Seconds INR (0.9-1.1) APTT (21.0-31.0) Seconds PTT Ratio Sodium (136-145) mmol/L Potassium (3.5-5.1) mmol/L Chloride (98-107) mmol/L Carbon Dioxide (21-32) mmol/L Anion Gap (3-11) BUN (7-18) mg/dl Creatinine (0.6-1.4) mg/dl Est Cr Clr Drug Dosing ml/min Est GFR ( Amer) Est GFR (Non-Af Amer) BUN/Creatinine Ratio (10-20) Glucose (70-99) mg/dl Lactate 2.9 H* (0.4-2.0) mmol/L Calcium (8.5-10.1) mg/dl Magnesium (1.8-2.4) mg/dl Total Bilirubin (0.2-1) mg/dl AST (15-37) U/L ALT (12-78) U/L Alkaline Phosphatase (45-117) U/L Troponin I (0-0.045) ng/ml Total Protein (6.4-8.2) gm/dl Albumin (3.4-5.0) gm/dl Globulin (2.5-4.0) gm/dl Albumin/Globulin Ratio (0.9-2) Procalcitonin Cancelled Urine Color Urine Appearance (Clear) Urine pH (4.5-7.5) Ur Specific [place] (1.000-1.030) Urine Protein (Negative) Urine Glucose (UA) (Negative) Urine Ketones (Negative) Urine Blood (Negative) Urine Nitrite (Negative) Urine Bilirubin (Negative) Urine Urobilinogen (Negative) Ur Leukocyte Esterase (Negative) Urine WBC (Auto) (0-5) /hpf Urine RBC (Auto) (0-4) /hpf U Hyaline Cast (Auto) (0-5) /lpf U Epithel Cells (Auto) (0-5) /lpf Urine Bacteria (Auto) (Negative) Influenza Type A (PCR) Neg for Influ A (Neg) Influenza Type B (PCR) Neg for Influ B (Neg) 08/13/19 08/13/19 Range/Units 22:18 Unknown WBC (4.8-10.8) K/uL RBC (4.7-6.1) M/uL Hgb (14.0-18.0) g/dL Hct (42-52) % MCV (80-100) fL MCH (25-34) pg MCHC (32-36) g/dL RDW Std Deviation (36.4-46.3) fL RDW Coeff of Bozena (11.5-14.5) % Plt Count (130-400) K/uL MPV (7.4-10.4) fL Immature Gran % (Auto) % Neut % (Auto) % Lymph % (Auto) % [place] % (Auto) % Eos % (Auto) % Baso % (Auto) % Immature Gran # (Auto) (0.00-0.02) K/uL Neut # (Auto) (1.4-6.5) K/uL Lymph # (Auto) (1.2-3.4) K/uL [place] # (Auto) (0.11-0.59) K/uL Eos # (Auto) (0-0.5) K/uL Baso # (Auto) (0-0.2) K/uL PT (9.0-12.0) Seconds INR (0.9-1.1) APTT (21.0-31.0) Seconds PTT Ratio Sodium (136-145) mmol/L Potassium (3.5-5.1) mmol/L Chloride (98-107) mmol/L Carbon Dioxide (21-32) mmol/L Anion Gap (3-11) BUN (7-18) mg/dl Creatinine (0.6-1.4) mg/dl Est Cr Clr Drug Dosing ml/min Est GFR ( Amer) Est GFR (Non-Af Amer) BUN/Creatinine Ratio (10-20) Glucose (70-99) mg/dl Lactate (0.4-2.0) mmol/L Calcium (8.5-10.1) mg/dl Magnesium (1.8-2.4) mg/dl Total Bilirubin (0.2-1) mg/dl AST (15-37) U/L ALT (12-78) U/L Alkaline Phosphatase (45-117) U/L Troponin I (0-0.045) ng/ml Total Protein (6.4-8.2) gm/dl Albumin (3.4-5.0) gm/dl Globulin (2.5-4.0) gm/dl Albumin/Globulin Ratio (0.9-2) Procalcitonin 0.45 Urine Color Dark Yellow Urine Appearance Clear (Clear) Urine pH 5.0 (4.5-7.5) Ur Specific [place] 1.026 (1.000-1.030) Urine Protein 2+ H (Negative) Urine Glucose (UA) 2+ H (Negative) Urine Ketones Trace H (Negative) Urine Blood 3+ H (Negative) Urine Nitrite Negative (Negative) Urine Bilirubin Negative (Negative) Urine Urobilinogen Negative (Negative) Ur Leukocyte Esterase Negative (Negative) Urine WBC (Auto) 1-5 (0-5) /hpf Urine RBC (Auto) 0-4 (0-4) /hpf U Hyaline Cast (Auto) 5-10 H (0-5) /lpf U Epithel Cells (Auto) 5-10 H (0-5) /lpf Urine Bacteria (Auto) Negative (Negative) Influenza Type A (PCR) (Neg) Influenza Type B (PCR) (Neg) Diagnostic Findings SINGLE VIEW CHEST CLINICAL HISTORY: Sepsis. FINDINGS: An AP, portable, upright chest radiograph is correlated with chest CT dated 11/26/2018. The examination is degraded by portable technique and apical lordotic positioning. The heart is enlarged. There is prominence of the pulmonary vasculature. Emphysema and chronic interstitial thickening are similar to previous. There are scattered calcified granulomas. Scarring/atelectasis is noted at the lung bases. No airspace consolidation or large pleural effusion is identified. No pneumothorax is seen. The skeletal structures are osteopenic. The bony thorax is grossly intact. IMPRESSION: 1. Cardiomegaly and emphysema. 2. There is prominence of the central pulmonary vessels. Correlate clinical difference of mild congestive failure. 3. No airspace consolidation or large pleural effusion is identified. ACT 112: Negative or not required by law. Electronically signed by: Saturnino May M.D. 08/13/2019 10:11 PM Dictated: 08/13/[address] SCAN OF THE BRAIN WITHOUT IV CONTRAST CLINICAL HISTORY: Change in mental status. COMPARISON STUDY: No priors. TECHNIQUE: Unenhanced axial CT scan of the brain is performed from the vertex to the skull base. A dose lowering technique was utilized adhering to the principles of ALARA. FINDINGS: Brain parenchyma: There are age-related involutional changes noting mild subcortical and periventricular microangiopathic change. There is no hemorrhage, mass effect, or evidence of acute territorial ischemia by CT criteria. Villalp[place]- white matter differentiation is preserved. No extra-axial fluid collection is seen. Ventricles, sulci, cisterns: Prominent secondary to involutional change. Intracranial vasculature: There is atherosclerotic calcification of the cavernous carotid and vertebral arteries. Calvarium: Unremarkable. Sinuses and mastoids: There is trace mucosal thickening in the left maxillary antrum. The remaining visualized paranasal sinuses are clear. The mastoid air cells are well pneumatized. Orbits: The bony orbits are grossly intact. IMPRESSION: There is no hemorrhage, mass effect, or evidence of acute territorial ischemia by CT criteria. ACT 112: Negative or not required by law. Electronically signed by: Saturnino May M.D. 08/13/2019 10:56 PM Dictated: 08/13/[address] SCAN OF THE CHEST WITHOUT IV CONTRAST CLINICAL HISTORY: Fever. Cough and dyspnea. COMPARISON STUDY: Chest x-ray 08/13/2019. Chest CT scan dated 11/26/2018 and 01/09/2016. TECHNIQUE: CT scan of the thorax was performed from the thoracic inlet to the upper abdomen. Images are reviewed in the axial, sagittal, and coronal planes. IV contrast was not administered for this examination as per the referring clinician. A dose lowering technique was utilized adhering to the principles of ALARA. CT DOSE: 2251.30 mGy.cm FINDINGS: Thyroid: Imaged portions of the thyroid gland are normal in size and attenuation. Thoracic aorta: There is atherosclerotic calcification of the thoracic aorta, which is normal in caliber and demonstrates standard 3-vessel arch anatomy. Heart: The heart is mildly enlarged and without pericardial effusion. The cor onary arteries are densely calcified. Lungs and pleural spaces: Emphysematous change is similar to previous. The trachea and central airways are clear. There is patchy airspace consolidation in the right lower lobe typical in appearance for pneumonia. No pleural effusion is identified. Scattered calcified granulomas are observed. An 11 mm focus of pleural-based nodularity in the right middle lobe along the minor fissure is seen on image #146. A 5 mm right middle lobe nodule is seen on image #163. Mediastinum: There is no mediastinal lymphadenopathy. [place]: Not well assessed without IV contrast. Axillae: There is no axillary lymphadenopathy. Upper abdomen: There is a small hiatal hernia. A 2.3 cm left adrenal adenoma is unchanged. The pancreas is atrophic. A 1.6 cm cyst is noted in the upper pole of the left kidney. Skeletal structures: The skeletal structures are osteopenic. Degenerative change is noted throughout the thoracic spine. No lytic or blastic bony lesions are seen. IMPRESSION: 1. Cardiomegaly and emphysema. 2. Right lower lobe consolidation is typical in appearance for pneumonia. Clinical correlation will be required and radiographic follow-up to resolution is recommended. Follow-up radiographs should include both PA and lateral views. 3. Pulmonary pleural-based nodular densities have been present dating back to 2016. Continued attention at annual lung cancer screening is recommended. 4. Additional findings as above. ACT 112: Negative or not required by law. Electronically signed by: Saturnino May M.D. ECG Additional Comments: Sinus tachycardia, no acute ischemic changes Code Status & VTE Plan Code Status DNR/DNI VTE Prophylaxis Plan VTE Prophylaxis will be ordered: Yes PG Care Time/CCT Total # of Minutes Spent Total Time Spent with Patient: Total time spent is greater than 50% in coordination of care (as documented) at patient's floor/unit and/or counseling patient: Coding Level of Care Code 13512 Initial Inpt Care Lvl 3 Diagnoses Pneumonia J18.9 Laterality: right Lung location: lower lobe of lung Pneumonia type: due to unspecified organism Diabetes mellitus E11.9 Diabetes mellitus type: type 2 Diabetes mellitus group home insulin use: without group home use Diabetes mellitus complication status: without complication GERD (gastroesophageal reflux disease) K21.9 Esophagitis presence: esophagitis presence not specified Tobacco abuse Z72.0 (1) Pneumonia Laterality: right Lung location: lower lobe of lung Pneumonia type: due to unspecified organism Qualified Code(s): J18.9 - Pneumonia, unspecified organism (2) Diabetes mellitus Diabetes mellitus type: type 2 Diabetes mellitus intermission coordinator insulin use: without intermission coordinator use Diabetes mellitus complication status: without complication Qualified Code(s): E11.9 - Type 2 diabetes mellitus without complications (3) GERD (gastroesophageal reflux disease) Esophagitis presence: esophagitis presence not specified Qualified Code(s): K21.9 - Gastro-esophageal reflux disease without esophagitis
[2019-08-14] MEDS ORDERED: SODIUM CHLORIDE 0.9% 1000ML 1,000 ML IV SCH (00:19)
[2019-08-14] MEDS ORDERED: DEXTROSE 50% 50 ML SYRINGE IV PRN (00:19)
[2019-08-14] MEDS ORDERED: ALBUT/IPRATROP 3MG/0.5MG NEB 3 ML VIAL NEB PRN (00:19)
[2019-08-14] MEDS ORDERED: GLUCOSE 40% GEL 15 GM TUBE PO PRN (00:19)
[2019-08-14] MEDS ORDERED: GLUCOSE 10 TABS/TUBE PO PRN (00:19)
[2019-08-14] MEDS ORDERED: CARBOHYDRATES FOR HYPOGLYCEMIA PO PRN (00:19)
[2019-08-14] MEDS ORDERED: GLUCAGON FOR INJ 1 MG VIAL SQ PRN (00:19)
[2019-08-14] MEDS ORDERED: AZITHROMYCIN 500 MG in DEXTROSE 5% 250 ML IV ONE (01:00)
[2019-08-14] MEDS: ACETAMINOPHEN 325 MG TAB PO PRN ×5 (01:24→22:01)
[2019-08-14] MEDS: INSULIN GLARGINE SOLOSTAR 100 UNITS/ML 3 ML PEN SC SCH ×3 (01:25→21:13)
[2019-08-14] MEDS ORDERED: cefTRIAXone SODIUM 2,000 MG in DEXTROSE 5% 50 ML IV SCH (04:00)
[2019-08-14] MEDS ORDERED: IBUPROFEN 200 MG TAB PO PRN (04:04)
[2019-08-14 06:06] LABS: Basophils # (auto) 0.02 K/uL (0-0.2); Basophils % (auto) 0.2 %; Eosinophils # (auto) 0.01 K/uL (0-0.5); Eosinophils % (auto) 0.1 %; Hematocrit (blood only) 41.2 % (42-52); Hemoglobin 14.3 g/dL (14.0-18.0); Immature Granulocytes # (auto) 0.04 K/uL (0.00-0.02); Immature Granulocytes % (auto) 0.4 %; Lymphocytes # (auto) 1.32 K/uL (1.2-3.4); Lymphocytes % (auto) 13.3 %; Mean Corpuscular Hemoglobin 33.6 pg (25-34); Mean Corpuscular Hgb Conc 34.7 g/dL (32-36); Mean Corpuscular Volume 96.7 fL (80-100); Mean Platelet Volume 9.7 fL (7.4-10.4); Monocytes # (auto) 0.62 K/uL (0.11-0.59); Monocytes % (auto) 6.2 %; Neutrophils # (auto) 7.93 K/uL (1.4-6.5); Neutrophils % (auto) 79.8 %; Platelet Count 192 K/uL (130-400); RDW Coefficient of Variation 14.5 % (11.5-14.5); RDW Standard Deviation 51.8 fL (36.4-46.3); Red Blood Count 4.26 M/uL (4.7-6.1); White Blood Count 9.94 K/uL (4.8-10.8)
[2019-08-14 06:38] LABS: Calcium 8.3 mg/dl (8.5-10.1); Creatinine Clr Calc Pharmacy 84.4 ml/min; Est GFR (African American) 92.4; Est GFR (Non-African American) 79.8; Magnesium 1.7 mg/dl (1.8-2.4); Phosphorus 1.6 mg/dl (2.5-4.9); Potassium 3.6 mmol/L (3.5-5.1)
[2019-08-14] MEDS: lisinopriL 5 MG TAB PO SCH (07:53)
[2019-08-14] MEDS: PANTOprazole 40 MG TAB PO SCH (07:53)
[2019-08-14] MEDS: ATORVASTATIN 10 MG TAB PO SCH (07:54)
[2019-08-14] MEDS ORDERED: POTASSIUM PHOS 3 MMOL/1 ML INFUSION IV STA (08:43)
[2019-08-14] MEDS ORDERED: PIPERACILL/TAZOBAC CONSULT ACTIVE PRN (08:45)
[2019-08-14] MEDS ORDERED: VANCOMYCIN HCL 2,000 MG in SODIUM CHLORIDE 0.9% 500 ML IV ONE (08:45)
[2019-08-14] MEDS ORDERED: PIPERACILLIN/TAZOBACTAM 3.375 GM in DEXTROSE 5% 100 ML IV SCH (08:45)
[2019-08-14] MEDS ORDERED: VANCOMYCIN CONSULT ACTIVE PRN (08:45)
[2019-08-14] MEDS: INSULIN ASPART 100 UNITS/ML 3 ML PEN SC SCH ×4 (08:53→21:19)
[2019-08-14] MEDS: ENOXAPARIN INJ 40 MG/0.4 ML SYR SQ SCH (08:54)
[2019-08-14] MEDS ORDERED: POTASSIUM PHOSPHATE 21 MMOL in SODIUM CHLORIDE 0.9% 500 ML IV ONE (09:00)
[2019-08-14] MEDS ORDERED: VANCOMYCIN HCL 2,250 MG in SODIUM CHLORIDE 0.9% 500 ML IV SCH (09:30)
[2019-08-14] MEDS ORDERED: PIPERACILLIN/TAZOBACTAM 3.375 GM in DEXTROSE 5% 100 ML IV ONE (09:30)
[2019-08-14] MEDS ORDERED: MAGNESIUM SULFATE / D5W 1 GM/100 ML BAG IV ONE ×2 (10:30→14:00)
[2019-08-14] MEDS ORDERED: LACTATED RINGER'S 1,000 ML IV ONE (11:47)
--- NOTE | 2019-08-14 11:47 | Hospitalist Progress Note ---
Date of Service August 14, 2019 Assessment & Plan (1) Sepsis: SIRS - 3 with suspected source RLL PNA. qSOFA 2 - high risk SOFA 2-4 points - unable to calculate exactly as no ABG on admission Broaden antibiotics as below - Vanc, Zosyn, Azithromycin Blood cultures pending Sputum culture ordered Urine without nitrites, WBC or bacteria on micro therefore not suspected to be contributory Abdominal exam and history unremarkable and given source no additional imaging required (2) Fever: Secondary to above. No concern for COVID-19 initially from admitting physician but given persistent high fevers out of proportion of PNA seen on CT and negative procalcitonin in house COVID-19 test was subsequently performed and negative. (3) Acute respiratory failure with hypoxia: Resp failure due to elevated resp rate and unable to complete full sentences when speaking. Viral panel pending. Secondary to RLL PNA. Aim O2 sats > 90%. (4) Pneumonia: Given persistent high fevers antibiotic coverage broadened with Vancomycin, Zosyn and Azithromycin. Can discontinue Vancomycin if MRSA nose swab negative. Given AMS and RLL PNA will get speech evaluation. (5) Diabetes mellitus: Patient with Type II DM on Metformin. BS elevated today on admission as per history ambulance gave soda due to hypoglycemia a home. No prior A1C in re cords - Lantus 5u BID with Novolog ISS, 40 correction, 1:20 carb ratio, goal blood sugar 100 - 140 - T2DM diet - HbA1C pending (6) GERD (gastroesophageal reflux disease): Chronic. Stable - Switch omeprazole to pantoprazole as per hospital formulary (7) Tobacco abuse: Patient reports smokes 1 pack/day although his son feels it is closer to 4 packs/day. Smoking cessation advised. Patient reports no need for nicotine patch. Although emphysema seen on CT he has no known history of this. On no inhalers at home. No prior exacerbations. No current wheezing on exam. (8) Tachycardia: Suspect appropriate secondary to fever. Given normal/elevated BP, BUN and Cr/Cr and urine specific gravity on admission I do not suspect he is substantially dehydrated. (9) Fall: Unwitnessed. Found in bathtub at home. He was able to walk after this without pain. Suspect he is off balance due to PNA. No injuries noted on exam from the fall but if he has pain once he starts ambulating then need imaging of his hips. (10) Electrolyte abnormality: Replace phosphorus as can reduce myocardial contractibility. Replace magnesium. (11) DVT prophylaxis: Continue Lovenox 40mg SQ daily Once more stable and not spiking fevers patient will need PT and OT evaluations. Admission and Anticipated Discharge Date Admission Date: August 13, 2019 Subjective Patient reports mild improvement since coming in to hospital although still appears to be somewhat confused. He notes a continued productive cough. Denies any shortness of breath, wheezing, chest pain, lightheadedness or dizziness. He admits to smoking 1 pack/day but no known COPD or need for inhalers. He notes his son works in a grocery store but no known exposure to COVID-19 and no-one else in the family are sick. Discussed care with his son Silas who says he will keep the rest of the family updated. He notes Silas was feeling well until the day of admission. He appeared to be more confused and think he fell in the shower. No sick contacts. He notes the patient smokes approximately 4 packs/day. Review of Systems Review of Systems: All systems reviewed & are unremarkable except as noted in HPI & below Physical Exam Constitutional: + altered mental status and + disheveled; + not well nourished and no acute distress Eyes: + anicteric sclerae; normal pupil size ENMT: external ear and nose normal, oropharynx normal Neck: trachea midline, no thyromegaly Respiratory: normal respiratory effort; no respiratory distress Auscultation: + crackles (RLL); no diminished lung sounds and no wheezes Cardiovascular: Rate/Rhythm: regular rhythm and + tachycardic Heart Sounds: no murmur Extremities: normal capillary refill and + pedal edema (1+ b/l equal); no calf tenderness Gastrointestinal (Abdomen): normal bowel sounds, soft, nontender, no hepatosplenomegaly Musculoskeletal: no cyanosis or clubbing, extremities motor strength 5/5 Skin: no rashes, warm and dry Neurologic: moves all extremities, awake and + confused (delayed answering questions); no focal motor deficits Psychiatric: Orientation: alert and oriented to person; + not oriented to place and + not oriented to time Results & Data Results & Data ([facility]) Vital Signs (Past 12 Hours) Vital Signs Temp Pulse Pulse Resp BP Pulse Ox 08/14/19 11:35 39.1 C H 119 H 26 H 147/94 H 99 08/14/19 07:45 38.8 C H 118 H 26 H 99 08/14/19 06:55 39.5 C H 127 H 32 H 169/98 H 97 08/14/19 04:32 39.4 C H 120 H 26 H 142/73 H 97 08/14/19 03:50 39.4 C H 120 H 96 08/14/19 00:20 38.5 C H 110 H 22 109/66 94 08/13/19 23:42 105 H 24 109/69 93 PG Care Time/CCT Total # of Minutes Spent Total Time Spent with Patient: Total time spent is greater than 50% in co ordination of care (as documented) at patient's floor/unit and/or counseling patient: Coding Level of Care Code 29741 Subseq Hosp Care Lvl 3 Diagnoses Sepsis A41.9 Sepsis acute organ dysfunction status: without acute organ dysfunction Sepsis type: sepsis due to unspecified organism Fever R50.9 Fever type: unspecified Acute respiratory failure with hypoxia J96.01 Pneumonia J18.9 Laterality: right Lung location: lower lobe of lung Pneumonia type: due to unspecified organism Diabetes mellitus E11.9 Diabetes mellitus complication status: without complication Diabetes mellitus ferry terminal supervisor insulin use: without correction use Diabetes mellitus type: type 2 GERD (gastroesophageal reflux disease) K21.9 Esophagitis presence: esophagitis presence not specified Tobacco abuse Z72.0 Tachycardia R00.0 Fall W19.XXXA Encounter type: initial encounter Electrolyte abnormality E87.8 DVT prophylaxis Z29.9 (1) Fever Fever type: unspecified Qualified Code(s): R50.9 - Fever, unspecified (2) Diabetes mellitus Diabetes mellitus complication status: without complication Diabetes mellitus ferry terminal supervisor insulin use: without correction use Diabetes mellitus type: type 2 Qualified Code(s): E11.9 - Type 2 diabetes mellitus without complications (3) Sepsis Sepsis acute organ dysfunction status: without acute organ dysfunction Sepsis type: sepsis due to unspecified organism Qualified Code(s): A41.9 - Sepsis, unspecified organism (4) GERD (gastroesophageal reflux disease) Esophagitis presence: esophagitis presence not specified Qualified Code(s): K21.9 - Gastro-esophageal reflux disease without esophagitis (5) Pneumonia Laterality: right Lung location: lower lobe of lung Pneumonia type: due to unspecified organism Qualified Code(s): J18.9 - Pneumonia, unspecified organism (6) Fall Encounter type: initial encounter Qualified Code(s): W19.XXXA - Unspecified fall, initial encounter
[2019-08-14 11:58] LABS: Adenovirus PCR Not Detected (NotDetected); Bordetella parapertussis PCR Not Detected (NotDetected); Bordetella pertussis PCR Not Detected (NotDetected); Chlamydia pneumoniae PCR Not Detected (NotDetected); Coronavirus 229E PCR Not Detected (NotDetected); Coronavirus HKU1 PCR Not Detected (NotDetected); Coronavirus NL63 PCR Not Detected (NotDetected); Coronavirus OC43PCR Not Detected (NotDetected); Human Metapneumovirus PCR Not Detected (NotDetected); Influenza A PCR Not Detected (NotDetected); Influenza B PCR Not Detected (NotDetected); Mycoplasma pneumoniae PCR Not Detected (NotDetected); Parainfluenza Virus 1 PCR Not Detected (NotDetected); Parainfluenza Virus 2 PCR Not Detected (NotDetected); Parainfluenza Virus 3 PCR Not Detected (NotDetected); Parainfluenza Virus 4 PCR Not Detected (NotDetected); Respiratory Syncytial VirusPCR Not Detected (NotDetected); Rhinovirus/Enterovirus PCR Not Detected (NotDetected)
--- NOTE | 2019-08-14 12:14 | Pharmacy Report ---
Pharmacy Abx Initial Consult - Date of Service August 14, 2019 - Pharmacy Dosing Scope Date of Consult: 08/14/19 Consultation requested by: Dr. Da Silva Pharmacy is consulted to initiate Vancomycin and Zosyn IV/PO dosing therapy, order appropriate labs and adjust drug dose/frequency. - Subjective The patient is a 69 year old M admitted on 08/13/19 23:31. - Objective Height: 5 ft 11 in Weight: 95.3 kg Vital Signs (Past 12hrs): Vital Signs Temp Pulse Pulse Resp BP Pulse Ox 08/14/19 11:35 39.1 C H 119 H 26 H 147/94 H 99 08/14/19 07:45 38.8 C H 118 H 26 H 99 08/14/19 06:55 39.5 C H 127 H 32 H 169/98 H 97 08/14/19 04:32 39.4 C H 120 H 26 H 142/73 H 97 08/14/19 03:50 39.4 C H 120 H 96 08/14/19 00:20 38.5 C H 110 H 22 109/66 94 Lab Results (24hrs): Laboratory Tests (24 Hours) 08/14/19 08/14/19 08/13/19 05:52 05:52 22:18 WBC 9.94 Neut # (Auto) 7.93 H Creatinine 0.96 D Est Cr Clr Drug Dosing 84.4 Procalcitonin 0.45 08/13/19 08/13/19 08/13/19 21:30 21:30 21:30 WBC 11.49 H Neut # (Auto) 9.38 H Creatinine 1.34 Est Cr Clr Drug Dosing 59.9 Procalcitonin Cancelled Micro Results: 08/13/19 22:19 Aerobic Blood Culture - Pending Blood Anaerobic Blood Culture - Pending 08/13/19 22:14 Aerobic Blood Culture - Pending Blood Anaerobic Blood Culture - Pending - Assessment & Plan Assessment 69 year old M presents with 1-2 days of weakness and fatigue. Also, mild fever and confusion at home(lives with son). Patient reports a chronic cough productive for clear phlegm. He denies worsening cough, SOB, increased sputum production, or purulent/bloody sputum. Chest x-ray shows right lower lobe consolidation typical in appearance for pneumonia. No concern for COVID-19 initially, but given persistent high fevers out of proportion of PNA, COVID-19 test performed in-house, which came back negative. MRSA nasal swab ordered and MD note states may discontinue Vancomycin if negative. Plan Vancomycin & Zosyn for treatment of pneumonia Vancomycin * Patient meets criteria for Vancomycin AUC dosing nomogram * AUC/CARISA is the preferred PK/PD target for Vancomycin * Target AUC/CARISA = 400-600 * AUC guided dosing is effective and associated with decreased risk of nephrotoxicity * Vancomycin 2250mg IV loading dose, then: * Vancomycin 1000mg IV q8h * Will evaluate a trough level prior to the 4th maintenance dose, to evaluate safety of dosing regimen. Piperacillin/tazobactam * 3.375 g bolus administered over 30 minutes, then 3.375 g IV extended infusion every 8 hours for CrCl greater than 20 mL/min OR every 12 hours for CrCl 20 mL/min or less and dialysis. Pharmacy will continue to follow and will adjust dose/frequency as necessary. Thank you.
[2019-08-14] MEDS: PIPERACILLIN/TAZOBACTAM 3.375 GM in DEXTROSE 5% 100 ML IV SCH ×2 (15:44→22:00)
--- NOTE | 2019-08-14 17:17 | Electrocardiogram Report ---
Test Reason : Blood Pressure : / mmHG Vent. Rate : 129 BPM Atrial Rate : 129 BPM P-R Int : 162 ms QRS Dur : 092 ms QT Int : 288 ms P-R-T Axes : 063 030 058 degrees QTc Int : 421 ms Sinus tachycardia Otherwise normal ECG No previous ECGs available Confirmed by Dylan Ramachandran ([id number]) on 08/14/2019 5:16:33 PM Referred By: REFERRED SELF Confirmed By:Dylan Ramachandran
[2019-08-14] MEDS ORDERED: VANCOMYCIN HCL 1,000 MG in SODIUM CHLORIDE 0.9% 250 ML IV SCH (18:00)
[2019-08-14] MEDS: AZITHROMYCIN 250 MG in DEXTROSE 5% 250 ML IV SCH (22:02)
[2019-08-15] MEDS: ACETAMINOPHEN 325 MG TAB PO PRN ×4 (05:34→23:06)
[2019-08-15] MEDS: PIPERACILLIN/TAZOBACTAM 3.375 GM in DEXTROSE 5% 100 ML IV SCH ×3 (05:36→22:11)
[2019-08-15 06:18] LABS: Basophils # (auto) 0.01 K/uL (0-0.2); Basophils % (auto) 0.1 %; Hematocrit (blood only) 38.6 % (42-52); Hemoglobin 13.3 g/dL (14.0-18.0); Immature Granulocytes # (auto) 0.02 K/uL (0.00-0.02); Immature Granulocytes % (auto) 0.3 %; Lymphocytes # (auto) 0.79 K/uL (1.2-3.4); Lymphocytes % (auto) 11.2 %; Mean Corpuscular Hemoglobin 33.1 pg (25-34); Mean Corpuscular Hgb Conc 34.5 g/dL (32-36); Monocytes # (auto) 0.32 K/uL (0.11-0.59); Monocytes % (auto) 4.6 %; Neutrophils # (auto) 5.89 K/uL (1.4-6.5); Neutrophils % (auto) 83.8 %; Platelet Count 163 K/uL (130-400); RDW Coefficient of Variation 14.1 % (11.5-14.5); RDW Standard Deviation 49.9 fL (36.4-46.3); Red Blood Count 4.02 M/uL (4.7-6.1); White Blood Count 7.03 K/uL (4.8-10.8)
[2019-08-15 06:54] LABS: Albumin Level 2.5 gm/dl (3.4-5.0); BUN Creatinine Ratio 18.5 (10-20); Calcium 8.1 mg/dl (8.5-10.1); Creatinine Clr Calc Pharmacy 105.2 ml/min; Est GFR (African American) 106.6; Est GFR (Non-African American) 91.9; Potassium 3.4 mmol/L (3.5-5.1)
[2019-08-15 07:07] LABS: Estimated Average Glucose 146 mg/dl; Hemoglobin A1C 6.7 % (4.5-5.6)
[2019-08-15 07:08] LABS: Albumin Globulin Ratio 0.6 (0.9-2); Bilirubin,Total 0.6 mg/dl (0.2-1); Globulin 4.4 gm/dl (2.5-4.0); Phosphorus 1.5 mg/dl (2.5-4.9); Total Protein 6.9 gm/dl (6.4-8.2)
[2019-08-15] MEDS: INSULIN ASPART 100 UNITS/ML 3 ML PEN SC SCH ×4 (08:36→20:34)
[2019-08-15] MEDS: INSULIN GLARGINE SOLOSTAR 100 UNITS/ML 3 ML PEN SC SCH ×2 (08:37→20:35)
[2019-08-15] MEDS: ENOXAPARIN INJ 40 MG/0.4 ML SYR SQ SCH (09:10)
[2019-08-15] MEDS: PANTOprazole 40 MG TAB PO SCH (09:11)
[2019-08-15] MEDS: ATORVASTATIN 10 MG TAB PO SCH (09:11)
[2019-08-15] MEDS: lisinopriL 5 MG TAB PO SCH (09:11)
[2019-08-15] MEDS ORDERED: POTASSIUM PHOS 3 MMOL/1 ML INFUSION IV STA (11:52)
--- NOTE | 2019-08-15 11:52 | Hospitalist Progress Note ---
Date of Service August 15, 2019 Assessment & Plan (1) Pneumonia: CT chest on 08/12 showed RLL pneumonia. Started on CAP abx on admission on 08/12, then switched to vanc/Zosyn/azithromycin on 08/13 for persistent fevers. - MRSA swab (-) on 08/13. Second pending, but if negative, will stop vancomycin as correlation between MRSA swab and pneumonia is good. - Continue Zosyn/azithromycin - Repeat 2vCXR to see if any evidence of empyema or other lack of source control - Repeat blood cultures - Consider speech eval (2) Fever: UA clear on 08/12. Blood cultures from 08/12 negative to date. Flu swab, [employer] respiratory panel, and Covid-19 PCR all negative on 08/13. - As above (3) Diabetes mellitus: Patient with Type II DM on metformin. A1c is 6.7% this admission. - Lantus 5u BID - Sliding scale insulin -> Blood sugars generally under good control in the last 24 hours. (4) Hypertension: BP 112/60 presently. - Continue lisinopril (5) Sepsis: SIRS - 3 with suspected source RLL PNA. qSOFA 2 - high risk. As of 08/14, still with signs of sepsis with tachycardia and fever. - As above (6) GERD (gastroesophageal reflux disease): Chronic. Stable. - Continue PPI (7) Tobacco abuse: Patient reports smokes 1 pack/day although his son feels it is closer to 4 packs/day. - Smoking cessation advised. Patient reports no need for nicotine patch. - Although emphysema seen on CT he has no known history of this. On no inhalers at home. No prior exacerbations. No current wheezing on exam. (8) Fall: Unwitnessed. Found in bathtub at home. He was able to walk after this without pain. Suspect he is off balance due to PNA. No injuries noted on exam from the fall but if he has pain once he starts ambulating then need imaging of his hips. - No pain today. - PT/OT entered (9) DVT prophylaxis: Lovenox 40mg SQ daily Admission and Anticipated Discharge Date Admission Date: August 13, 2019 Subjective No fevers overnight, but one this morning. Feels he is breathing "great." Still has a non-productive cough, but this is improving. Reports no fevers/chills, chest pain, shortness of breath, abdominal pain, nausea, or vomiting. Physical Exam Constitutional: WD/WN, vitals as above Eyes: EOM intact bilaterally; no conjunctival abnormality ENMT: external ear and nose normal, oropharynx normal Neck: trachea midline, no thyromegaly normal visual inspection Respiratory: normal respiratory effort, lungs clear to auscultation no respiratory distress Cardiovascular: RRR, no murmur, no edema Gastrointestinal (Abdomen): Inspection/Auscultation: abdomen normal to in spection; abdomen not distended Musculoskeletal: no cyanosis or clubbing, extremities motor strength 5/5 Skin: no rashes, warm and dry Neurologic: moves all extremities and awake Psychiatric: Orientation: alert, oriented to person and cooperative Results & Data Results & Data ([facility]) Vital Signs (Past 12 Hours) Vital Signs Temp Pulse Resp BP Pulse Ox 08/15/19 11:26 39.1 C H 100 H 18 112/62 91 08/15/19 07:17 37.5 C 93 H 18 105/63 95 08/15/19 05:44 39.4 C H 128 H 16 165/82 H PG Care Time/CCT Total # of Minutes Spent Total Time Spent with Patient: Total time spent is greater than 50% in coordination of care (as documented) at patient's floor/unit and/or counseling patient: Coding Level of Care Code 92611 Subseq Hosp Care Lvl 3 Diagnoses Pneumonia J18.9 Laterality: right Lung location: lower lobe of lung Pneumonia type: due to unspecified organism Fever R50.9 Fever type: unspecified Diabetes mellitus E11.9 Diabetes mellitus type: type 2 Diabetes mellitus termite exterminator insulin use: without shelter use Diabetes mellitus complication status: without complication Hypertension I10 Sepsis A41.9 Sepsis acute organ dysfunction status: without acute organ dysfunction Sepsis type: sepsis due to unspecified organism GERD (gastroesophageal reflux disease) K21.9 Esophagitis presence: esophagitis presence not specified Tobacco abuse Z72.0 Fall W19.XXXA Encounter type: initial encounter DVT prophylaxis Z29.9 (1) Sepsis Sepsis acute organ dysfunction status: without acute organ dysfunction Sepsis type: sepsis due to unspecified organism Qualified Code(s): A41.9 - Sepsis, unspecified organism (2) Fever Fever type: unspecified Qualified Code(s): R50.9 - Fever, unspecified (3) Pneumonia Laterality: right Lung location: lower lobe of lung Pneumonia type: due to unspecified organism Qualified Code(s): J18.9 - Pneumonia, unspecified organism (4) Diabetes mellitus Diabetes mellitus type: type 2 Diabetes mellitus shelter insulin use: without termite exterminator use Diabetes mellitus complication status: without complication Qualified Code(s): E11.9 - Type 2 diabetes mellitus without complications (5) GERD (gastroesophageal reflux disease) Esophagitis presence: esophagitis presence not specified Qualified Code(s): K21.9 - Gastro-esophageal reflux disease without esophagitis (6) Fall Encounter type: initial encounter Qualified Code(s): W19.XXXA - Unspecified fall, initial encounter
[2019-08-15] MEDS ORDERED: POTASSIUM PHOSPHATE 21 MMOL in SODIUM CHLORIDE 0.9% 500 ML IV ONE (12:00)
--- NOTE | 2019-08-15 13:17 | XRay Report ---
XR chest 2V PA/lateral CLINICAL HISTORY: Continue fevers, pneumonia COMPARISON STUDY: Chest radiograph and chest CT June 14, 2019. FINDINGS: There is no pneumothorax or pleural effusion. Right lower lobe airspace opacity has slightl y increased since exam of August 13, 2019. Cardiac size is normal. There is no evidence for pulmonary edema. IMPRESSION: Slight increase in right lower lobe airspace opacity suggestive of pneumonia. Radiograph ic follow-up to ensure resolution is recommended. ACT 112: Negative or not required by law. Electronically signed by: Shaun Parnell M.D. 08/15/2019 1:16 PM
[2019-08-15] MEDS ORDERED: VANCOMYCIN TROUGH ONE (17:30)
[2019-08-15 19:37] LABS: Adenovirus PCR Not Detected (NotDetected); Bordetella parapertussis PCR Not Detected (NotDetected); Bordetella pertussis PCR Not Detected (NotDetected); Chlamydia pneumoniae PCR Not Detected (NotDetected); Coronavirus 229E PCR Not Detected (NotDetected); Coronavirus HKU1 PCR Not Detected (NotDetected); Coronavirus NL63 PCR Not Detected (NotDetected); Coronavirus OC43PCR Not Detected (NotDetected); Human Metapneumovirus PCR Not Detected (NotDetected); Influenza A PCR Not Detected (NotDetected); Influenza B PCR Not Detected (NotDetected); Mycoplasma pneumoniae PCR Not Detected (NotDetected); Parainfluenza Virus 1 PCR Not Detected (NotDetected); Parainfluenza Virus 2 PCR Not Detected (NotDetected); Parainfluenza Virus 3 PCR Not Detected (NotDetected); Parainfluenza Virus 4 PCR Not Detected (NotDetected); Respiratory Syncytial VirusPCR Not Detected (NotDetected); Rhinovirus/Enterovirus PCR Not Detected (NotDetected)
[2019-08-15] MEDS: AZITHROMYCIN 250 MG in DEXTROSE 5% 250 ML IV SCH (20:36)
[2019-08-16] MEDS: ACETAMINOPHEN 325 MG TAB PO PRN ×3 (03:30→13:55)
[2019-08-16 06:14] LABS: Hemoglobin 13.2 g/dL (14.0-18.0); Mean Corpuscular Hemoglobin 33.1 pg (25-34); Mean Corpuscular Hgb Conc 34.7 g/dL (32-36); Mean Corpuscular Volume 95.2 fL (80-100); Mean Platelet Volume 10.1 fL (7.4-10.4); Platelet Count 181 K/uL (130-400); RDW Coefficient of Variation 14.1 % (11.5-14.5); RDW Standard Deviation 49.2 fL (36.4-46.3); Red Blood Count 3.99 M/uL (4.7-6.1); White Blood Count 7.54 K/uL (4.8-10.8)
[2019-08-16 06:48] LABS: Albumin Level 2.3 gm/dl (3.4-5.0); BUN Creatinine Ratio 21.1 (10-20); Calcium 7.9 mg/dl (8.5-10.1); Creatinine Clr Calc Pharmacy 106.6 ml/min; Est GFR (African American) 107.1; Est GFR (Non-African American) 92.4; Magnesium 2.2 mg/dl (1.8-2.4); Potassium 3.6 mmol/L (3.5-5.1)
[2019-08-16 06:51] LABS: Albumin Globulin Ratio 0.5 (0.9-2); Bilirubin,Total 0.5 mg/dl (0.2-1); Globulin 4.5 gm/dl (2.5-4.0); Phosphorus 1.6 mg/dl (2.5-4.9); Total Protein 6.8 gm/dl (6.4-8.2)
[2019-08-16] MEDS: PIPERACILLIN/TAZOBACTAM 3.375 GM in DEXTROSE 5% 100 ML IV SCH ×3 (06:55→22:23)
[2019-08-16] MEDS: INSULIN GLARGINE SOLOSTAR 100 UNITS/ML 3 ML PEN SC SCH ×2 (08:19→20:13)
[2019-08-16] MEDS: INSULIN ASPART 100 UNITS/ML 3 ML PEN SC SCH ×4 (08:20→20:14)
[2019-08-16] MEDS: ENOXAPARIN INJ 40 MG/0.4 ML SYR SQ SCH (08:21)
[2019-08-16] MEDS: lisinopriL 5 MG TAB PO SCH (08:21)
[2019-08-16] MEDS: ATORVASTATIN 10 MG TAB PO SCH (08:21)
[2019-08-16] MEDS: PANTOprazole 40 MG TAB PO SCH (08:22)
[2019-08-16] MEDS ORDERED: POTASSIUM PHOS 3 MMOL/1 ML INFUSION IV STA (14:06)
[2019-08-16] MEDS ORDERED: POTASSIUM PHOSPHATE 24 MMOL in SODIUM CHLORIDE 0.9% 500 ML IV ONE (14:15)
[2019-08-16] MEDS ORDERED: SODIUM CHLOR 7% 4 ML NEB NEB ONE (14:23)
[2019-08-16] MEDS ORDERED: methylPREDNISolone 40 MG in SYRINGE 0 ML IV STA (14:39)
[2019-08-16] MEDS ORDERED: VANCOMYCIN CONSULT ACTIVE PRN ×2 (16:52→17:00)
--- NOTE | 2019-08-16 17:28 | Pharmacy Report ---
Pharmacy Abx Initial Consult - Date of Service August 16, 2019 - Pharmacy Dosing Scope Date of Consult: 08/16/2019 Consultation requested by: Dr. Mccracken Pharmacy is consulted to initiate Vancomycin IV dosing therapy, order appropriate labs and adjust drug dose/frequency. - Subjective The patient is a 69 year old M admitted on 08/13/19 23:31. - Objective Height: 5 ft 11 in Weight: 95.3 kg Vital Signs (Past 12hrs): Vital Signs Temp Pulse Resp BP Pulse Ox 08/16/19 15:21 91 H 14 90 08/16/19 14:00 38.0 C H 97 H 18 118/73 91 08/16/19 13:57 39.5 C H 08/16/19 12:05 37.9 C H 08/16/19 08:40 39.6 C H 107 H 18 157/77 H 91 08/16/19 07:03 39.1 C H Lab Results (24hrs): Laboratory Tests (24 Hours) 08/16/19 08/16/19 08/16/19 06:05 06:05 06:05 WBC 7.54 Creatinine 0.76 Est Cr Clr Drug Dosing 106.6 Procalcitonin 0.97 H Micro Results: 08/16/19 15:52 Gram Stain - Pending Sputum, Expectorated Sputum Culture - Pending 08/13/19 22:19 Anaerobic Blood Culture - Final Blood - Risk Factors for Resistance * None - Assessment & Plan Assessment 08/13: 69 year old M presents with 1-2 days of weakness and fatigue. Also, mild fever and confusion at home(lives with son). Patient reports a chronic cough productive for clear phlegm. He denies worsening cough, SOB, increased sputum production, or purulent/bloody sputum. Chest x-ray shows right lower lobe consolidation typical in appearance for pneumonia. No concern for COVID-19 initially, but given persistent high fevers out of proportion of PNA, COVID-19 test performed in-house, which came back negative. MRSA nasal swab ordered and MD note states may discontinue Vancomycin if negative. 08/15: Patient being restarted on vancomycin secondary to worsening chest xray as well as remaining afebrile on broad spectrum antibiotics. Two negative MRSA nasal swabs but agree with decision to cover MRSA secondary to lack of improvement. Will reload patient with vancomycin. Plan Vancomycin for treatment of pneumonia Vancomycin * Patient meets criteria for Vancomycin AUC dosing nomogram * AUC/CARISA is the preferred PK/PD target for Vancomycin * Target AUC/CARISA = 400-600 * AUC guided dosing is effective and associated with decreased risk of nephrotoxicity * Vancomycin 2250mg IV loading dose, then: * Vancomycin 1500mg IV q8h * Will evaluate a trough level prior to the 5th maintenance dose, to evaluate safety of dosing regimen. Piperacillin/tazobactam * Continue on 3.375 g IV extended infusion every 8 hours for CrCl greater than 20 mL/min Azithromycin * Continue on 250 mg IV Q24H Pharmacy will continue to follow and will adjust dose/frequency as necessary. Thank you.
[2019-08-16] MEDS ORDERED: VANCOMYCIN HCL 2,250 MG in SODIUM CHLORIDE 0.9% 500 ML IV ONE (17:30)
[2019-08-16] MEDS: AZITHROMYCIN 250 MG in DEXTROSE 5% 250 ML IV SCH (20:14)
[2019-08-16] MEDS: methylPREDNISolone 40 MG in SYRINGE 0 ML IV SCH (20:14)
--- NOTE | 2019-08-16 21:41 | Hospitalist Progress Note ---
Date of Service August 16, 2019 Assessment & Plan (1) Pneumonia: Sepsis secondary to pneumonia, POA CT chest on 08/12 showed RLL pneumonia. Started on CAP abx on admission on 08/12, then switched to vanc/Zosyn/azithromycin on 08/13 for persistent fevers. -BIOFIRE and COVID 19 negative x2 - Continue Zosyn/azithromycin -Patient continues to have fevers. -will add vanco Did hypertonic neb for sputum production. -will monitor. WBC and procal has improved. - Repeat blood cultures - Consider speech eval (2) Fever: UA clear on 08/12. Blood cultures from 08/12 negative to date. Flu swab, [employer] respiratory panel, and Covid-19 PCR all negative on 08/13. - As above (3) Diabetes mellitus: Patient with Type II DM on metformin. A1c is 6.7% this admission. - Lantus 5u BID - Sliding scale insulin -> Blood sugars generally under good control in the last 24 hours. (4) Hypertension: normotensive. - Continue lisinopril (5) Sepsis: SIRS - 3 with suspected source RLL PNA. qSOFA 2 - high risk. As of 08/14, still with signs of sepsis with tachycardia and fever. - As above (6) GERD (gastroesophageal reflux disease): Chronic. Stable. - Continue PPI (7) Tobacco abuse: Patient reports smokes 1 pack/day although his son feels it is closer to 4 packs/day. - Smoking cessation advised. Patient reports no need for nicotine patch. - Although emphysema seen on CT he has no known history of this. On no inhalers at home. No prior exacerbations. No current wheezing on exam. (8) Fall: Unwitnessed. Found in bathtub at home. He was able to walk after this without pain. Suspect he is off balance due to PNA. No injuries noted on exam from the fall but if he has pain once he starts ambulating then need imaging of his hips. - No pain today. - PT/OT entered (9) DVT prophylaxis: Lovenox 40mg SQ daily (10) Hypophosphatemia: replaced Admission and Anticipated Discharge Date Admission Date: August 13, 2019 Subjective Patient reports no new symptoms. Updated son. Review of Systems Review of Systems: All systems reviewed & are unremarkable except as noted in HPI & below Physical Exam Physical Exam: Constitutional: WD/WN, vitals as above Eyes: EOM intact bilaterally; no conjunctival abnormality ENMT: external ear and nose normal, oropharynx normal Neck: trachea midline, no thyromegaly normal visual inspection Respiratory: normal respiratory effort, lungs clear to auscultation no respiratory distress Cardiovascular: RRR, no murmur, no edema Gastrointestinal (Abdomen): Inspection/Auscultation: abdomen normal to inspection; abdomen not distended Musculoskeletal: no cyanosis or clubbing, extremities motor strength 5/5 Skin: no rashes, warm and dry Neurologic: moves all extremities and awake Psychiatric: Orientation: alert, oriented to person and cooperative Results & Data Results & Data ([facility]) Vital Signs (Past 12 Hours) Vital Signs Temp Pulse Resp BP Pulse Ox 08/16/19 18:25 37.9 C H 08/16/19 15:21 91 H 14 90 08/16/19 14:00 38.0 C H 97 H 18 118/73 91 08/16/19 13:57 39.5 C H 08/16/19 12:05 37.9 C H PG Care Time/CCT Total # of Minutes Spent Total Time Spent with Patient: Total time spent is greater than 50% in coordination of care (as documented) at patient's floor/unit and/or counseling patient: Coding Level of Care Code 52987 Subseq Hosp Care Lvl 3 Diagnoses Pneumonia J18.9 Laterality: right Lung location: lower lobe of lung Pneumonia type: due to unspecified organism Fever R50.9 Fever type: unspecified Diabetes mellitus E11.9 Diabetes mellitus complication status: without complication Diabetes mellitus watermelon inspector insulin use: without nursing home use Diabetes mellitus type: type 2 Hypertension I10 Sepsis A41.9 Sepsis acute organ dysfunction status: without acute organ dysfunction Sepsis type: sepsis due to unspecified organism GERD (gastroesophageal reflux disease) K21.9 Esophagitis presence: esophagitis presence not specified Tobacco abuse Z72.0 Fall W19.XXXA Encounter type: initial encounter DVT prophylaxis Z29.9 Hypophosphatemia E83.39 Time Spent (min) 35 (1) Fever Fever type: unspecified Qualified Code(s): R50.9 - Fever, unspecified (2) Diabetes mellitus Diabetes mellitus complication status: without complication Diabetes mellitus watermelon inspector insulin use: without nursing home use Diabetes mellitus type: type 2 Qualified Code(s): E11.9 - Type 2 diabetes mellitus without complications (3) Sepsis Sepsis acute organ dysfunction status: without acute organ dysfunction Sepsis type: sepsis due to unspecified organism Qualified Code(s): A41.9 - Sepsis, unspecified organism (4) GERD (gastroesophageal reflux disease) Esophagitis presence: esophagitis presence not specified Qualified Code(s): K21.9 - Gastro-esophageal reflux disease without esophagitis (5) Pneumonia Laterality: right Lung location: lower lobe of lung Pneumonia type: due to unspecified organism Qualified Code(s): J18.9 - Pneumonia, unspecified organism (6) Fall Encounter type: initial encounter Qualified Code(s): W19.XXXA - Unspecified fall, initial encounter
[2019-08-17] MEDS: VANCOMYCIN HCL 1,500 MG in SODIUM CHLORIDE 0.9% 500 ML IV SCH ×2 (01:22→08:00)
[2019-08-17] MEDS: PIPERACILLIN/TAZOBACTAM 3.375 GM in DEXTROSE 5% 100 ML IV SCH (06:04)
[2019-08-17 06:13] LABS: Hematocrit (blood only) 40.9 % (42-52); Hemoglobin 14.1 g/dL (14.0-18.0); Mean Corpuscular Hemoglobin 32.6 pg (25-34); Mean Corpuscular Hgb Conc 34.5 g/dL (32-36); Mean Corpuscular Volume 94.7 fL (80-100); Mean Platelet Volume 10.2 fL (7.4-10.4); Platelet Count 246 K/uL (130-400); RDW Coefficient of Variation 14.2 % (11.5-14.5); RDW Standard Deviation 49.6 fL (36.4-46.3); Red Blood Count 4.32 M/uL (4.7-6.1); White Blood Count 7.54 K/uL (4.8-10.8)
[2019-08-17 06:30] LABS: BUN Creatinine Ratio 18.6 (10-20); Calcium 8.2 mg/dl (8.5-10.1); Est GFR (African American) 100.9
[2019-08-17 06:31] LABS: Basophils # (auto) 0.01 K/uL (0-0.2); Basophils % (auto) 0.1 %; Immature Granulocytes # (auto) 0.04 K/uL (0.00-0.02); Immature Granulocytes % (auto) 0.5 %; Lymphocytes # (auto) 0.59 K/uL (1.2-3.4); Lymphocytes % (auto) 7.8 %; Monocytes # (auto) 0.27 K/uL (0.11-0.59); Monocytes % (auto) 3.6 %; Neutrophils # (auto) 6.63 K/uL (1.4-6.5)
[2019-08-17 06:32] LABS: Phosphorus 2.9 mg/dl (2.5-4.9)
[2019-08-17] MEDS: PANTOprazole 40 MG TAB PO SCH (07:56)
[2019-08-17] MEDS: ATORVASTATIN 10 MG TAB PO SCH (07:56)
[2019-08-17] MEDS: ENOXAPARIN INJ 40 MG/0.4 ML SYR SQ SCH (07:56)
[2019-08-17] MEDS: lisinopriL 5 MG TAB PO SCH (07:56)
[2019-08-17] MEDS: INSULIN ASPART 100 UNITS/ML 3 ML PEN SC SCH ×4 (07:57→20:47)
[2019-08-17] MEDS: INSULIN GLARGINE SOLOSTAR 100 UNITS/ML 3 ML PEN SC SCH ×2 (07:57→20:47)
[2019-08-17] MEDS: methylPREDNISolone 40 MG in SYRINGE 0 ML IV SCH (07:57)
--- NOTE | 2019-08-17 08:35 | Pharmacy Report ---
Pharmacy Abx Dose Short Note - Date of Service August 17, 2019 - Assessment & Plan Assessment 69 year old M receiving vancomycin, Zosyn and Zithromax for treatment of pneumonia Day # 4 of Zosyn and Zithromax therapy. Vancomycin was just re-started last evening for continued fevers. SCr is up slightly, warranting an adjustment to vancomycin dose as per AUC dosing nomogram Patient has been afebrile since last evening Plan Vancomycin * est CrCl 92 mL/min * Patient continues to meet criteria for vancomycin AUC dosing nomogram * Change to 1250 mg IV every 8 hours * 1500 mg 0800 dose documented as administered but RN reports this has not been started yet. Instead, 1250 mg dose will be started @ 1000, as ordered. * AUC/CARISA is the preferred PK/PD target for vancomycin * Target AUC/CARISA = 400-600 * AUC guided dosing is effective and associated with decreased risk of nephrotoxicity * Trough level ordered for: 08/18/19 @ 0930 (prior to the 4th dose of reduced regimen) Zosyn * Continue 3.375 gm extended infusion q8h for CrCL > 20 mL/min Zithromax * Not dosed per pharmacy but appropriate at 250 mg IV q24h. Will consider transitioning to PO if patient continues to be afebrile Pharmacy will continue to follow and will adjust dose/frequency as necessary. Thank you.
[2019-08-17] MEDS ORDERED: VANCOMYCIN HCL 1,250 MG in SODIUM CHLORIDE 0.9% 250 ML IV SCH (10:00)
[2019-08-17] MEDS: levoFLOXacin 750 MG TAB PO SCH (15:31)
--- NOTE | 2019-08-17 22:36 | Hospitalist Progress Note ---
Date of Service August 17, 2019 Assessment & Plan (1) Legionella pneumonia: Patient has legionella penumonia. Will place on levofloxain orally as no fever overnight. If continues to tolerate this. will discharge in AM. Stooped other antibiotics. Updated son. (2) Pneumonia: Sepsis secondary to pneumonia, POA CT chest on 08/12 showed RLL pneumonia. Started on CAP abx on admission on 08/12, then switched to vanc/Zosyn/azithromycin on 08/13 for persistent fevers. -BIOFIRE and COVID 19 negative x2 as stated above. (3) Fever: UA clear on 08/12. Blood cultures from 08/12 negative to date. Flu swab, [employer] respiratory panel, and Covid-19 PCR all negative on 08/13. - As above (4) Diabetes mellitus: Patient with Type II DM on metformin. A1c is 6.7% this admission. - Lantus 5u BID - Sliding scale insulin -> Blood sugars generally under good control in the last 24 hours. (5) Hypertension: normotensive. - Continue lisinopril (6) Sepsis: SIRS - 3 with suspected source RLL PNA. qSOFA 2 - high risk. As of 08/14, still with signs of sepsis with tachycardia and fever. - As above (7) GERD (gastroesophageal reflux disease): Chronic. Stable. - Continue PPI (8) Tobacco abuse: Patient reports smokes 1 pack/day although his son feels it is closer to 4 packs/day. - Smoking cessation advised. Patient reports no need for nicotine patch. - Although emphysema seen on CT he has no known history of this. On no inhalers at home. No prior exacerbations. No current wheezing on exam. (9) Fall: Unwitnessed. Found in bathtub at home. He was able to walk after this without pain. Suspect he is off balance due to PNA. No injuries noted on exam from the fall but if he has pain once he starts ambulating then need imaging of his hips. - No pain today. - PT/OT entered (10) DVT prophylaxis: Lovenox 40mg SQ daily (11) Hypophosphatemia: replaced Admission and Anticipated Discharge Date Admission Date: August 13, 2019 Subjective 69 yo male reports feeling well he has no new complaints. No fevers. Review of Systems Review of Systems: All systems reviewed & are unremarkable except as noted in HPI & below Physical Exam Physical Exam: Constitutional: WD/WN, vitals as above Eyes: EOM intact bilaterally; no conjunctival abnormality ENMT: external ear and nose normal, oropharynx normal Neck: trachea midline, no thyromegaly normal visual inspection Respiratory: normal respiratory effort, lungs clear to auscultation no respiratory distress Cardiovascular: RRR, no murmur, no edema Gastrointestinal (Abdomen): Inspection/Auscultation: abdomen normal to inspection; abdomen not distended Musculoskeletal: no cyanosis or clubbing, extremities motor strength 5/5 Skin: no rashes, warm and dry Neurologic: moves all extremities and awake Psychiatric: Orientation: alert, oriented to person and cooperative Results & Data Results & Data ([facility]) Vital Signs (Past 12 Hours) Vital Signs Temp Pulse Resp BP Pulse Ox 08/17/19 15:44 36.5 C 68 18 122/70 92 PG Care Time/CCT Total # of Minutes Spent Total Time Spent with Patient: Total time spent is greater than 50% in coordination of care (as documented) at patient's floor/unit and/or counseling patient: Coding Level of Care Code 44038 Subseq Hosp Care Lvl 3 Diagnoses Legionella pneumonia A48.1 Pneumonia J18.9 Laterality: right Lung location: lower lobe of lung Pneumonia type: due to unspecified organism Fever R50.9 Fever type: unspecified Diabetes mellitus E11.9 Diabetes mellitus complication status: without complication Diabetes mellitus laborer marine terminal insulin use: without nursing home use Diabetes mellitus type: type 2 Hypertension I10 Sepsis A41.9 Sepsis acute organ dysfunction status: without acute organ dysfunction Sepsis type: sepsis due to unspecified organism GERD (gastroesophageal reflux disease) K21.9 Esophagitis presence: esophagitis presence not specified Tobacco abuse Z72.0 Fall W19.XXXA Encounter type: initial encounter DVT prophylaxis Z29.9 Hypophosphatemia E83.39 Time Spent (min) 35 (1) Fever Fever type: unspecified Qualified Code(s): R50.9 - Fever, unspecified (2) Diabetes mellitus Diabetes mellitus complication status: without complication Diabetes mellitus laborer marine terminal insulin use: without nursing home use Diabetes mellitus type: type 2 Qualified Code(s): E11.9 - Type 2 diabetes mellitus without complications (3) Sepsis Sepsis acute organ dysfunction status: without acute organ dysfunction Sepsis type: sepsis due to unspecified organism Qualified Code(s): A41.9 - Sepsis, unspecified organism (4) GERD (gastroesophageal reflux disease) Esophagitis presence: esophagitis presence not specified Qualified Code(s): K21.9 - Gastro-esophageal reflux disease without esophagitis (5) Pneumonia Laterality: right Lung location: lower lobe of lung Pneumonia type: due to unspecified organism Qualified Code(s): J18.9 - Pneumonia, unspecified organism (6) Fall Encounter type: initial encounter Qualified Code(s): W19.XXXA - Unspecified fall, initial encounter
[2019-08-18 07:06] LABS: Creatinine Clr Calc Pharmacy 105.2 ml/min; Est GFR (African American) 106.6; Est GFR (Non-African American) 91.9
[2019-08-18] MEDS: INSULIN ASPART 100 UNITS/ML 3 ML PEN SC SCH ×2 (08:42→13:03)
[2019-08-18] MEDS: ATORVASTATIN 10 MG TAB PO SCH (08:42)
[2019-08-18] MEDS: INSULIN GLARGINE SOLOSTAR 100 UNITS/ML 3 ML PEN SC SCH (08:43)
[2019-08-18] MEDS: ENOXAPARIN INJ 40 MG/0.4 ML SYR SQ SCH (08:43)
[2019-08-18] MEDS: lisinopriL 5 MG TAB PO SCH (08:44)
[2019-08-18] MEDS: PANTOprazole 40 MG TAB PO SCH (08:44)
[2019-08-18] MEDS ORDERED: methylPREDNISolone 40 MG in SYRINGE 0 ML IV SCH (09:00)
[2019-08-18] MEDS ORDERED: VANCOMYCIN TROUGH ONE (09:30)
[2019-08-18] MEDS: levoFLOXacin 750 MG TAB PO SCH (11:21)
--- NOTE | 2019-08-18 12:39 | Discharge Summary ---
Date of Service August 18, 2019 Admission HPI Per Admitting Provider Silas Santiago is a pleasant 69yo C male with history of DM, tobacco use presenting with 1-2 days of weakness, fatigue and feeling "out of wack". Also mild fever and some confusion at home. Patient reports a chronic cough productive for clear phlegm. He denies worsening cough, SOB, increased sputum production or purulent/bloody sputum. He denies GUO/abdominal pain/nausea/vomiting/diarrhea/constipation. No additional complaints at this time. On arrival to the ER he was found to be febrile at 38.5, tachycardic at 128bpm, tachypneic at 28 breaths/min saturating 91% on room air. Supplemental O2 was placed with improvement to 96%. Patient lives at home with his son. He denies any sick contacts or contact with known Covid+ persons. No recent travel. No Covid-19 testing performed. No concern for coronavirus at this time. ER Course: Tylenol, Cefepime, Albuterol, NSS Principal Diagnosis Legionella Pneumonia Discharge Exam Constitutional: WD/WN, vitals as above Eyes: EOM intact bilaterally; no conjunctival abnormality ENMT: external ear and nose normal, oropharynx normal Neck: trachea midline, no thyromegaly normal visual inspection Respiratory: normal respiratory effort, lungs clear to auscultation no respiratory distress Cardiovascular: RRR, no murmur, no edema Gastrointestinal (Abdomen): Inspection/Auscultation: abdomen normal to inspection; abdomen not distended Musculoskeletal: no cyanosis or clubbing, extremities motor strength 5/5 Skin: no rashes, warm and dry Neurologic: moves all extremities and awake Psychiatric: Orientation: alert, oriented to person and cooperative Discharge Data Allergies Allergy/AdvReac Type Severity Reaction Status Date / Time aspirin Allergy Anaphylaxis Unverified 08/13/19 23:32 Consultations 08/13/19 23:20 ED Decision to Admit Stat Ordered Studies 08/13/19 21:26 CT head/brain wo con Stat 08/13/19 22:08 CT chest wo con Stat Hospital Course (1) Legionella pneumonia: Patient has legionella penumonia. Will place on levofloxain orally as no fever overnight. If continues to tolerate this. Rpeate chest x ray in 4-6 weeks to assess resolution will discharge in AM. Stooped other antibiotics. complete levaquin for 5 more days for a 10 day course. Updated son. (2) Pneumonia: Sepsis secondary to pneumonia, POA CT chest on 08/12 showed RLL pneumonia. Started on CAP abx on admission on 08/12, then switched to vanc/Zosyn/azithromycin on 08/13 for persistent fevers. -BIOFIRE and COVID 19 negative x2 as stated above. (3) Fever: UA clear on 08/12. Blood cultures from 08/12 negative to date. Flu swab, BioFire respiratory panel, and Covid-19 PCR all negative on 08/13. - As above (4) Diabetes mellitus: Patient with Type II DM on metformin. A1c is 6.7% this admission. - Lantus 5u BID - Sliding scale insulin -> Blood sugars generally under good control in the last 24 hours. (5) Hypertension: normotensive. - Continue lisinopril (6) Sepsis: SIRS - 3 with suspected source RLL PNA. qSOFA 2 - high risk. As of 08/14, still with signs of sepsis with tachycardia and fever. - As above (7) GERD (gastroesophageal reflux disease): Chronic. Stable. - Continue PPI (8) Tobacco abuse: Patient reports smokes 1 pack/day although his son feels it is closer to 4 packs/day. - Smoking cessation advised. Patient reports no need for nicotine patch. - Although emphysema seen on CT he has no known history of this. On no inhalers at home. No prior exacerbations. No current wheezing on exam. (9) Fall: Unwitnessed. Found in bathtub at home. He was able to walk after this without pain. Suspect he is off balance due to PNA. No injuries noted on exam from the fall but if he has pain once he starts ambulating then need imaging of his hips. - No pain today. - PT/OT entered (10) DVT prophylaxis: Lovenox 40mg SQ daily (11) Hypophosphatemia: replaced Total Time Total Time Spent Total Time Spent (In Minutes): 32 Total Time Includes: Examination of the Patient, Discharge Planning and Medication Reconciliation Discharge Plan Discharge Items Patient Disposition: Home - Self-Care Reason For Visit: PNEUMONIA Discharge Diagnosis: pneumonia Condition on Discharge: Fair Activity: Resume your previous activity Non-emergency contact: Primary Care Provider Call non-emergency contact if: you have any medication questions Follow-up/Referrals: Shiloh Santo [Primary Care Provider] - 09/05/19 8:00 am Diet: Regular and Carb Consistent or DM2 Addtl Attending Provider Instructions: You have been hospitalized for an acute medical problem. During your stay at [facility], we have made an effort to correct the problem that brought you to the hospital while keeping you as comfortable as possible. Medications were used to bring your condition under control and your discharge instructions will include directions for any medications you should take after leaving the hospital. Please make sure you see your Primary Care Provider as part of your follow up plan. Coronavirus disease 2019 (COVID-19) is a virus that causes a respiratory illness. It is caused by a coronavirus called 2019 novel coronavirus (2019- nCoV). There are many types of coronavirus. Coronaviruses are a very common cause of bronchitis. They may sometimes cause lung infection(pneumonia). Symptoms can range from mild to severe respiratory illness. These viruses are also foundin some animals. COVID-19 was first found in people in [facility], in late 2018. In 2020, several cases of COVID-19 have been confirmed in the [place] Public health officials are working to find the source. How the virus spreads is not yet fully known. It may be spread through droplets of fluid that a person coughs or sneezes into the air. It may be spread if you touch a surface with virus on it, such as a handle or object, and then touch your mouth. What are the symptoms of COVID-19? Some people have no symptoms or mild symptoms. Symptoms may appear 2 to 14 days after contact with the virus. Symptoms can include: Fever Coughing Trouble breathing What are possible complications from COVID-19? In many cases, this virus can cause infection (pneumonia) in both lungs. In some cases, this can cause . How is COVID-19 diagnosed? Your healthcare provider will ask about your symptoms. He or she will also ask about your recent travel and contact with sick people. Testing for the virus is only done through the CDC. If yourhealthcare provider thinks you may have COVID- 19, he or she will work with your local health department and the CDC on testing. Follow all instructions from your healthcare provider. COVID-19 is diagnosed by: Nasal and throat swab. A cotton-tipped swab is wiped inside your nose or throat. This is done to check for viruses in your nasal mucus. Sputum culture. A small sample of mucus coughed from your lungs (sputum) is collected if you have a cough. It is checked for the virus. How is COVID-19 treated? There is currently no medicine to treat the virus. Treatment is done to help your body while it fights the virus. This is known as supportive care. Supportive care may include: Pain medicine. These include acetaminophen and ibuprofen. They are used to help ease pain and reduce fever. Bed rest. This helps your body fight the illness. For severe illness, you may need to stay in the hospital. Care during severe illness may include: IV (intravenous) fluids.These are given through a vein to help keep your body hydrated. Oxygen. Supplemental oxygen or ventilation with a breathing machine (ventilator) may be given. This is done to keep enough oxygen in your body. Are you at risk for COVID-19? If youve been to a place where people have been sick with this virus, you are at risk for infection. You are at risk if you: Recently traveled to an affected area Had contact with a sick person who recently traveled to this area Had contact with a person who was diagnosed with COVID-19 How can COVID-19 be prevented? There is no vaccine yet. The best prevention is to not have contact with the virus. The CDC advises that people should not travel to areas where there are COVID-19 outbreaks right now for any reason that is not urgent. To help prevent spreading the infection, wash your hands often, or use an alcohol-basedhand garment turner. If you are in an area with COVID-19: Wash your hands often. Or use an alcohol-based hand garment turner often. Only touch your eyes, nose, or mouth with clean hands. Dont have contact with people who are sick. Follow local instructions about being in public. For example, you may be told to not use public transport for a period of time. Stay away from markets that have live or animals. Wash your hands after touching any animals. Don't touch animals that may be sick. Dont share eating or drinking tools with sick people. Dont kiss someone who is sick. Clean surfaces often with disinfectant. If you were in an area with COVID-19 in the last 14 days: Call your healthcare provider. He or she can talk with local health staff to see what action may be needed. Follow all instructions from your provider. Take your temperature every morning and evening for at least 14 days. This is to check for fever. Keep a record of the readings. Keep watch for symptoms of the virus. Tell your provider right away if you have symptoms. If you were in an area with COVID-19 and have a fever or other symptoms: Dont panic. Keep in mind that other illnesses can cause similar symptoms. Stay away from work, school, and public places. Limit physical contact with family members. Don't kiss anyone or share eating or drinking utensils. Clean surfaces you touch with disinfectant. This is to help prevent the virus from spreading. Call your healthcare provider. Explain that you have been exposed to COVID-19 and have symptoms. Do this before going to any hospital. Wait for instructions. Keep in mind that healthcare staff may wear protective equipment such as masks, gowns, gloves, and eye protection. You may be put in a separate room. This is to prevent the possible virus from spreading. Tell the healthcare staff about recent travel. This includes local travel on public transport. Staff may need to find other people you have been in contact with. Follow all instructions the healthcare staff give you. If you have been diagnosed with COVID-19 Follow all instructions from your healthcare provider. Dont leave your home, except to get medical care. Call your healthcare providers office before going. They can prepare and give you instructions. This will help prevent the virus from spreading. Dont go to work, school, or public areas. Dont use public transport or taxis. Stay away from other people in your home. Have them wear face masks around you. Dont share household items or food. Wear a face mask if you can. This includes at home or in a medical facility. Cover your face with a tissue when you cough or sneeze. Throw the tissue away. Wash your hands. Wash your hands often. Caregivers should: Follow all instructions from healthcare staff. Wear a face mask and protective clothing as advised. Wash hands often. Keep track of the sick persons symptoms. Clean surfaces, fabrics, and laundry thoroughly. Keep other people away from the sick person. When to call your healthcare provider Call your healthcare provider: If youve recently traveled and have symptoms If you have been diagnosed with COVID-19 and your symptoms are worse To learn more To find out more about COVID-19, visit the CDC website at www.cdc.gov/coronavirus/2019-ncov/index.html. [employer]. [address] [place] [address]. All rights reserved. This information is not intended as a substitute for professional medical care. Always follow your healthcare professional's instructions. This information has been adapted from [employer] Pending Studies at Discharge: No Stand-Alone Forms: My [facility] [employer], Smoking Cessation Medications and DC Order Prescriptions: New levofloxacin 750 mg Tablet 750 mg PO DAILY@1100 Qty: 5 RF: 0 prednisone 10 mg tablet 10 mg PO DAILY Qty: 12 RF: 0 Continued omeprazole 20 mg capsule,delayed release(DR/EC) 20 mg PO DAILY RF: 0 lisinopril 5 mg tablet 5 mg PO DAILY RF: 0 atorvastatin 10 mg tablet 10 mg PO DAILY RF: 0 metformin 500 mg tablet 500 mg PO BID RF: 0 Discharge Orders: Discharge Order (Routine); Ordered 08/18/19 Ordered By: Mark Burton/Other Patient Handouts: Diabetes Type 2 Medications, Diabetes Healthy Meals, Diabetes Exercise Benefits, Diabetes Manage A1C Test Admission Data Admit Date/Time: 08/13/19 23:31 Attending Provider: Mark Mccracken Admit Provider: Edel Voss Primary Care Provider: Shiloh Santo Other Providers: Roque Deluna Other Interventions: Discharge Summary Assessment (RN) Last Done: 08/18/19 13:37 DC Date/Time DO NOT enter until pt leaves facility: 08/18/19 14:24 Coding Level of Care Code D/C Day Management >30 mins Diagnoses Legionella pneumonia A48.1 Pneumonia J18.9 Laterality: right Lung location: lower lobe of lung Pneumonia type: due to unspecified organism Fever R50.9 Fever type: unspecified Diabetes mellitus E11.9 Diabetes mellitus complication status: without complication Diabetes mellitus health and wellness director insulin use: without health and wellness director use Diabetes mellitus type: type 2 Hypertension I10 Sepsis A41.9 Sepsis acute organ dysfunction status: without acute organ dysfunction Sepsis type: sepsis due to unspecified organism GERD (gastroesophageal reflux disease) K21.9 Esophagitis presence: esophagitis presence not specified Tobacco abuse Z72.0 Fall W19.XXXA Encounter type: initial encounter DVT prophylaxis Z29.9 Hypophosphatemia E83.39 Time Spent (min) 34
== END 2019-08-18 14:24 | disposition home or self-care (01) | DRG 871 ==
LOC: ED 21:10 → 2N 23:31 → SUATTDRO 23:31 → 2N 08-14 00:03